=== PATIENT | male | born 1965 | race Caucasian/White ===

== ENCOUNTER 2016-12-10 16:04 | Outpatient (RCR) | payer MEDICARE ==
[2016-12-05 10:30] VITALS: BMI 29.8
[~2016-12-10 16:04] MED LIST: ALBU2.5V36 INH; ASPI-1471 PO; CITA-139 PO; DEXL60CA6 PO; IPRA3AMP21 IH; LOSA-57 PO; PRAV20TA66 PO; PRED20TA6 PO; SULF-198 PO; VAL80 PO; VARE1TAB4 PO
--- NOTE | 2016-12-12 14:15 | Transitional Care Management ---
Assessment Visit Type: Telephone Visit Spoke with: Stevenson Respiratory: WNL Except Respiratory Comment: 12/12 got concentrator and port O2 that goes up to 8 L for home use. states he got nebulizer meds but no nebulizer for them. I contacted [facility] and got signed order then faxdd to [facility]. Pt states he has to carry large port unit and I requested they bring him a carrier. They do not have a BIPAP until . States he plans on pulm rehab when next class begins in a month. Knows limits of O2 tanks is 1/2 hr for little one and 2hr for big one. Doesn't have carrier for tank and asked [facility] to provide one. Musculoskeletal, Exercise: WNL Except Musculoskeletal, Excercise Com: 12/12 getting around house; steady. doesnt need a cane for stability. Enc little more each day Integumentary: WNL Except Integumentary Comment: 12/12 sees PT for wounds on at 2:15. Feeling of Well Being: WNL Feeling of Well Being Comment: 12/12 safe being home and using O2 Scheduled Follow-Up with Mary Kayi: No (12/12 enc to call Patsy for 1-2 wk f/u) TCM Discharge Criteria Medication Knowledge: 12/12 has neb meds but no neb. Enc him to ask [facility] to show him how to use nebulizer when they deliver it. Nebs are only new meds. His parents bought the chantix for him. Disease Management/Concern/Wha: COPD Red/Yellow Flags: COPD Transitional Care Comment: 12/07 Concerned about finances. Had business office come and visit with him. States "I'm getting stronger-my O2 is now down to 6 1/2 liters. hopes to go home Saturday.12/08 called pharmacy to see how to obtain coupons to reduce the cost of Chantex. Check sites on internet. was able to find 1 coupon for Chantix This costs approx $387 per starter pkg. I also gave him information on Living will-Advance directive. He thinks he will be going home tomorrow and is receptive in learning. 12/10 preparing for DC. Awaiting O2 tank. Will take mask from here and [facility] will bring new mask and remaining equip to his home in a couple days. Mr Garcia is seriously contaplating changes in his life.He is going to do what he he can to get the Chantex (quit smoking med) to help him and the will try to increase activity. Will be going to outpatient rehab for his legs to be wrapped and then when he can get signed up with Pul Rehab he will do that. 12/11 Left message for pt 12/12 pt returned call. Feels better. able to sleep just a few hours at a time and on his right side awaiting BIPAP thurs. Called pt back to let him know that signed order was fax to [facility] and that he should recieive it this pm and if not to call them. Able to drive to pharmacy and bank. feels better. states was 88% on monitor when he was SOB. Quit smoking REKHA ANNA Dec 12, 2016 14:15
[2016-12-17] MEDS ORDERED: PRED-1 PO (06:46)
[2016-12-17] MEDS ORDERED: CEF300 PO (07:29)
--- NOTE | 2016-12-19 14:56 | Transitional Care Management ---
Assessment Visit Type: Telephone Visit (12/19 Azam) Cardiac: WNL Cardiac Comment: 12/19 Denies any CP or dizyness. Saw Dr Delgado and BP was stable still holding Losartin for this time-until next appt. Respiratory: WNL Except Respiratory Comment: 12/12 got concentrator and port O2 that goes up to 8 L for home use. states he got nebulizer meds but no nebulizer for them. I contacted [facility] and got signed order then faxdd to [facility]. Pt states he has to carry large port unit and I requested they bring him a carrier. They do not have a BIPAP until . States he plans on pulm rehab when next class begins in a month. Knows limits of O2 tanks is 1/2 hr for little one and 2hr for big one. Doesn't have carrier for tank and [facility]. 12/19 'I'm doing OK. I went to Dr flores, Nathan and Karan today. Got a little tired but I went through 2 tanks.' I used the Bipap last PM and think I slept better with it. Slept most of the night with it on" This afternoon I'm going to rest with it on." GI: Nutrition: WNL Except GI Comment: 12/19 Eating fair-only eat 2 meals a day and try to lose wt.. We usually eat a late breakfast and then dinner around 1600. Wt Gain/Loss: WNL Weight Comment: 12/19weighted on my scale and wt 12 less than Patsy. But I will cont to go by mine to determinee if I gain wt. Constipation?: No Musculoskeletal, Exercise: WNL Except Musculoskeletal, Excercise Com: 12/12 getting around house; steady. doesnt need a cane for stability. Enc little more each day Mobility Comment: 12/19 sI got around quite well today. Integumentary: WNL Except Integumentary Comment: 12/12 sees PT for wounds on at 2:15. 12/19 will go to PT tomorrow and have my legs checkec. Feeling of Well Being: WNL Feeling of Well Being Comment: 12/12 safe being home and using O2 12/19 doing OK" wish I could do more" My parens come by and my is alot of support." Scheduled Follow-Up with Mary Kayi: Yes [facility]: 12/19 [facility]. Have an appointment w Voc rehab tomorrow at 1415 and then to PT at [facility] for wound care. I will do the Pul Rehab in one month. Following Discharge Instructio: Yes TCM Discharge Criteria Medication Knowledge: 12/12 has neb meds but no neb. Enc him to ask [facility] to show him how to use nebulizer when they deliver it. Nebs are only new meds. His parents bought the chantix for him. Disease Management/Concern/Wha: COPD Red/Yellow Flags: COPD Transitional Care Comment: 12/07 Concerned about finances. Had business office come and visit with him. States "I'm getting stronger-my O2 is now down to 6 1/2 liters. hopes to go home Saturday.12/08 called pharmacy to see how to obtain coupons to reduce the cost of Chantex. Check sites on internet. was able to find 1 coupon for Chantix This costs approx $387 per starter pkg. I also gave him information on Living will-Advance directive. He thinks he will be going home tomorrow and is receptive in learning. 12/10 preparing for DC. Awaiting O2 tank. Will take mask from here and [facility] will bring new mask and remaining equip to his home in a couple days. Mr Garcia is seriously contaplating changes in his life.He is going to do what he he can to get the Chantex (quit smoking med) to help him and the will try to increase activity. Will be going to outpatient rehab for his legs to be wrapped and then when he can get signed up with Pul Rehab he will do that. 12/11 Left message for pt 12/12 pt returned call. Feels better. able to sleep just a few hours at a time and on his right side awaiting BIPAP thurs. Called pt back to let him know that signed order was fax to [facility] for neb and that he should recieive it this pm and if not to call them. Able to drive to pharmacy and bank. feels better. states was 88% on monitor when he was SOB. Quit smoking 12/19 Seems a little down but states he's doing OK. Hopes something for him to do will come out of visit to [facility]hab. Has not smoked. Using Chantex 1x daily but has found he doesn't even have the desire at this time. Copies to: BRIAN DELGADO JOAN Dec 19, 2016 14:56
[2016-12-23] MEDS ORDERED: FLUT1DIS28 INH (13:38)
[2016-12-23] MEDS ORDERED: PRED-1 PO (13:38)
--- NOTE | 2016-12-24 13:29 | Transitional Care Management ---
Assessment Visit Type: Telephone Visit Spoke with: Azam Cardiac: WNL Cardiac Comment: 12/19 Denies any CP or dizyness. Saw Dr Delgado and BP was stable still holding Losartin for this time-until next appt. 12/24 Losartin/hudroclorithiazide still on hold, though his legs are starting to swell. Respiratory: WNL Except Respiratory Comment: 12/12 got concentrator and port O2 that goes up to 8 L for home use. states he got nebulizer meds but no nebulizer for them. I contacted [facility] and got signed order then faxdd to [facility]. Pt states he has to carry large port unit and I requested they bring him a carrier. They do not have a BIPAP until . States he plans on pulm rehab when next class begins in a month. Knows limits of O2 tanks is 1/2 hr for little one and 2hr for big one. Doesn't have carrier for tank and asked [facility] to provide one. 12/19 'I'm doing OK. I went to [facility] and [facility] today. Got a little tired but I went through 2 tanks.' I used the Bipap last PM and think I slept better with it. Slept most of the night with it on" This afternoon I'm going to rest with it on." 12/24 He is 91-92% on 6L, tollerating Bipap, but only sleeps a few hours at a time, new neb mask he feels is more effective. GI: Nutrition: WNL Except GI Comment: 12/19 Eating fair-only eat 2 meals a day and try to lose wt.. We usually eat a late breakfast and then dinner around 1600. Wt Gain/Loss: WNL Weight Comment: 12/19weighted on my scale and wt 12 less than Patsy. But I will cont to go by mine to determinee if I gain wt. Constipation?: No : WNL Musculoskeletal, Exercise: WNL Except Musculoskeletal, Excercise Com: 12/12 getting around house; steady. doesnt need a cane for stability. Enc little more each day 12/24 Tollerating activity well today. Mobility/Falls: WNL Mobility Comment: 12/19 sI got around quite well today. Integumentary: WNL Except Integumentary Comment: 12/12 sees PT for wounds on at 2:15. 12/19 will go to PT tomorrow and have my legs checkec. 12/24 PT appt today for wounds. Feeling of Well Being: WNL Feeling of Well Being Comment: 12/12 safe being home and using O2 12/19 doing OK" wish I could do more" My parens come by and my is alot of support." 12/24 When I discharged yesterday, they put me back on a higher dose of prednisone, and I feel a lot better. Socialization: WNL Pain/Management: WNL Scheduled Follow-Up with Provi: Yes [facility]: 12/19 [place]. Have an appointment w [facility] tomorrow at 1415 and then to PT at [facility] for wound care. I will do the Pul Rehab in one month. 12/24 continuing Voc rehab, PT wound care. Questions for Future PCP Visit: 12/24 Losartan/hydrclorithiazide, swelling of legs. Following Discharge Instructio: Yes TCM Discharge Criteria Medication Knowledge: 12/12 has neb meds but no neb. Enc him to ask [facility] to show him how to use nebulizer when they deliver it. Nebs are only new meds. His parents bought the chantix for him. 12/24 He has not needed to take the chantix, but may once he is out of the house more. Disease Management/Concern/Wha: COPD Red/Yellow Flags: COPD Transitional Care Comment: 12/07 Concerned about finances. Had business office come and visit with him. States "I'm getting stronger-my O2 is now down to 6 1/2 liters. hopes to go home Saturday.12/08 called pharmacy to see how to obtain coupons to reduce the cost of Chantex. Check sites on internet. was able to find 1 coupon for Chantix This costs approx $387 per starter pkg. I also gave him information on Living will-Advance directive. He thinks he will be going home tomorrow and is receptive in learning. 12/10 preparing for DC. Awaiting O2 tank. Will take mask from here and [facility] will bring new mask and remaining equip to his home in a couple days. Mr Garcia is seriously contaplating changes in his life.He is going to do what he he can to get the Chantex (quit smoking med) to help him and the will try to increase activity. Will be going to outpatient rehab for his legs to be wrapped and then when he can get signed up with Pul Rehab he will do that. 12/11 Left message for pt 12/12 pt returned call. Feels better. able to sleep just a few hours at a time and on his right side awaiting BIPAP thurs. Called pt back to let him know that signed order was fax to [facility] for neb and that he should recieive it this pm and if not to call them. Able to drive to pharmacy and [facility]. feels better. states was 88% on monitor when he was SOB. Quit smoking 12/19 Seems a little down but states he's doing OK. Hopes something for him to do will come out of visit to [facility]. Has not smoked. Using Chantex 1x daily but has found he doesn't even have the desire at this time. 12/24 Pt was discharged from the hospital yesterday. He was put back on higher dose prednisone, and was given a mask for his neb treatments, and feels better today. He is not smoking, and has not taken chantix, but keeps it incase, once he is getting out more and arround smoke, he feels the need. Sats 91-92% on 6L. Seeing PT for wound care today. Copies to: BRIAN DELGADO MICHAEL K Dec 24, 2016 13:29
--- NOTE | 2016-12-31 13:23 | Transitional Care Management ---
Assessment Visit Type: Telephone Visit Spoke with: Azam Cardiac: WNL Cardiac Comment: 12/19 Denies any CP or dizyness. Saw Dr Delgado and BP was stable still holding Losartin for this time-until next appt. 12/24 Losartin/hudroclorithiazide still on hold, though his legs are starting to swell. Respiratory: WNL Except Respiratory Comment: 12/12 got concentrator and port O2 that goes up to 8 L for home use. states he got nebulizer meds but no nebulizer for them. I contacted [facility] and got signed order then faxdd to [facility]. Pt states he has to carry large port unit and I requested they bring him a carrier. They do not have a BIPAP until . States he plans on pulm rehab when next class begins in a month. Knows limits of O2 tanks is 1/2 hr for little one and 2hr for big one. Doesn't have carrier for tank and asked [facility] to provide one. 12/19 'I'm doing OK. I went to [facility] and [facility] today. Got a little tired but I went through 2 tanks.' I used the Bipap last PM and think I slept better with it. Slept most of the night with it on" This afternoon I'm going to rest with it on." 12/24 He is 91-92% on 6L, tollerating Bipap, but only sleeps a few hours at a time, new neb mask he feels is more effective. 12/31 Tollerating Bipap well, 6L O2 during the day. GI: Nutrition: WNL Except GI Comment: 12/19 Eating fair-only eat 2 meals a day and try to lose wt.. We usually eat a late breakfast and then dinner around 1600. Wt Gain/Loss: WNL Weight Comment: 12/19weighted on my scale and wt 12 less than Patsy. But I will cont to go by mine to determinee if I gain wt. Constipation?: No : WNL Musculoskeletal, Exercise: WNL Except Musculoskeletal, Excercise Com: 12/12 getting around house; steady. doesnt need a cane for stability. Enc little more each day 12/24 Tollerating activity well today. Mobility/Falls: WNL Mobility Comment: 12/19 sI got around quite well today. Integumentary: WNL Except Integumentary Comment: 12/12 sees PT for wounds on at 2:15. 12/19 will go to PT tomorrow and have my legs checkec. 12/24 PT appt today for wounds. Feeling of Well Being: WNL Feeling of Well Being Comment: 12/12 safe being home and using O2 12/19 doing OK" wish I could do more" My parens come by and my is alot of support." 12/24 When I discharged yesterday, they put me back on a higher dose of prednisone, and I feel a lot better. 12/31 I am feeling pretty good. Socialization: WNL Pain/Management: WNL Scheduled Follow-Up with Mary Kayi: Yes (12/31Jan 14 Rug Frame Mounter Appt.) Community Resources/HHC: 12/19 [place]. Have an appointment w [facility] tomorrow at 1415 and then to PT at [facility] for wound care. I will do the Pul Rehab in one month. 12/24 continuing [facility] re[facility], PT wound care. Questions for Future PCP Visit: 12/24 Losartan/hydrclorithiazide, swelling of legs. Following Discharge Instructio: Yes TCM Discharge Criteria Medication Knowledge: 12/12 has neb meds but no neb. Enc him to ask [facility] to show him how to use nebulizer when they deliver it. Nebs are only new meds. His parents bought the chantix for him. 12/24 He has not needed to take the chantix, but may once he is out of the house more. Disease Management/Concern/Wha: COPD Red/Yellow Flags: COPD Transitional Care Comment: 12/07 Concerned about finances. Had business office come and visit with him. States "I'm getting stronger-my O2 is now down to 6 1/2 liters. hopes to go home Saturday.12/08 called pharmacy to see how to obtain coupons to reduce the cost of Chantex. Check sites on internet. was able to find 1 coupon for Chantix This costs approx $387 per starter pkg. I also gave him information on Living will-Advance directive. He thinks he will be going home tomorrow and is receptive in learning. 12/10 preparing for DC. Awaiting O2 tank. Will take mask from here and [facility] will bring new mask and remaining equip to his home in a couple days. Mr Garcia is seriously contaplating changes in his life.He is going to do what he he can to get the Chantex (quit smoking med) to help him and the will try to increase activity. Will be going to outpatient rehab for his legs to be wrapped and then when he can get signed up with Pul Rehab he will do that. 12/11 Left message for pt 12/12 pt returned call. Feels better. able to sleep just a few hours at a time and on his right side awaiting BIPAP thurs. Called pt back to let him know that signed order was fax to [facility] for neb and that he should recieive it this pm and if not to call them. Able to drive to pharmacy and [employer]. feels better. states was 88% on monitor when he was SOB. Quit smoking 12/19 Seems a little down but states he's doing OK. Hopes something for him to do will come out of visit to [facility]. Has not smoked. Using Chantex 1x daily but has found he doesn't even have the desire at this time. 12/24 Pt was discharged from the hospital yesterday. He was put back on higher dose prednisone, and was given a mask for his neb treatments, and feels better today. He is not smoking, and has not taken chantix, but keeps it incase, once he is getting out more and arround smoke, he feels the need. Sats 91-92% on 6L. Seeing PT for wound care today. 12/31 He is feeling good, will stay on 6L until his Pulmonology appt on jan 14, tollerating Bipap well. Copies to: BRIAN DELGADO MICHAEL K Dec 31, 2016 13:23
--- NOTE | 2017-01-08 11:20 | Transitional Care Management ---
Assessment Visit Type: Telephone Visit (01/08 [place]) Cardiac: WNL Cardiac Comment: 12/19 Denies any CP or dizyness. Saw Dr Delgado and BP was stable still holding Losartin for this time-until next appt. 12/24 Losartin/hudroclorithiazide still on hold, though his legs are starting to swell. 01/08 Denies CP and swelling in legs much decreased. Respiratory: WNL Except Respiratory Comment: 12/12 got concentrator and port O2 that goes up to 8 L for home use. states he got nebulizer meds but no nebulizer for them. I contacted [facility] and got signed order then faxdd to [facility]. Pt states he has to carry large port unit and I requested they bring him a carrier. They do not have a BIPAP until . States he plans on pulm rehab when next class begins in a month. Knows limits of O2 tanks is 1/2 hr for little one and 2hr for big one. Doesn't have carrier for tank and asked [facility] to provide one. 12/19 'I'm doing OK. I went to Dr flores, [facility] and [facility] today. Got a little tired but I went through 2 tanks.' I used the Bipap last PM and think I slept better with it. Slept most of the night with it on" This afternoon I'm going to rest with it on." 12/24 He is 91-92% on 6L, tollerating Bipap, but only sleeps a few hours at a time, new neb mask he feels is more effective. 12/31 Tollerating Bipap well, 6L O2 during the day. RT Rehab won't start again until March but he is registared. GI: Nutrition: WNL Except GI Comment: 12/19 Eating fair-only eat 2 meals a day and try to lose wt.. We usually eat a late breakfast and then dinner around 1600. Wt Gain/Loss: WNL Weight Comment: 12/19weighted on my scale and wt 12 less than Patsy. But I will cont to go by mine to determinee if I gain wt. 01/08 still wt about 223# trying to lose but not happening yet Constipation?: No : WNL Musculoskeletal, Exercise: WNL Except Musculoskeletal, Excercise Com: 12/12 getting around house; steady. doesnt need a cane for stability. Enc little more each day 12/24 Tollerating activity well today. 01/08 walking around. when I go to [place] I walking around lookng for the one item I wnet after and can get a pretty good walk in. Today I'm going to [facility] and they are going to give me a 6 mo membership to the [facility]. Reminded him to start slowly Mobility/Falls: WNL Mobility Comment: 12/19 sI got around quite well today. Integumentary: WNL Except Integumentary Comment: 12/12 sees PT for wounds on at 2:15. 12/19 will go to PT tomorrow and have my legs checkec. 12/24 PT appt today for wounds. 01/08 PT told him last that his leg wounds are almost healed and the swelling pretty much gone Feeling of Well Being: WNL Feeling of Well Being Comment: 12/12 safe being home and using O2 12/19 doing OK" wish I could do more" My parens come by and my is alot of support." 12/24 When I discharged yesterday, they put me back on a higher dose of prednisone, and I feel a lot better. 12/31 I am feeling pretty good. I am feeling better. Thanks for the support! Socialization: WNL Pain/Management: WNL Scheduled Follow-Up with Jose Alejandro: Yes (12/31Jan 14 County Commissioner Appt.) Community Resources/HHC: 12/19 [facility]. Have an appointment w [facility] tomorrow at 1415 and then to PT at [facility] for wound care. I will do the Pul Rehab in one month. 12/24 continuing [facility] re[facility], PT wound care. Questions for Future PCP Visit: 12/24 Losartan/hydrclorithiazide, swelling of legs. Following Discharge Instructio: Yes TCM Discharge Criteria Medication Knowledge: 12/12 has neb meds but no neb. Enc him to ask [facility] to show him how to use nebulizer when they deliver it. Nebs are only new meds. His parents bought the chantix for him. 12/24 He has not needed to take the chantix, but may once he is out of the house more. Disease Management/Concern/Wha: COPD Red/Yellow Flags: COPD Transitional Care Comment: 12/07 Concerned about finances. Had business office come and visit with him. States "I'm getting stronger-my O2 is now down to 6 1/2 liters. hopes to go home Saturday.12/08 called pharmacy to see how to obtain coupons to reduce the cost of Chantex. Check sites on internet. was able to find 1 coupon for Chantix This costs approx $387 per starter pkg. I also gave him information on Living will-Advance directive. He thinks he will be going home tomorrow and is receptive in learning. 12/10 preparing for DC. Awaiting O2 tank. Will take mask from here and [facility] will bring new mask and remaining equip to his home in a couple days. Mr Garcia is seriously contaplating changes in his life.He is going to do what he he can to get the Chantex (quit smoking med) to help him and the will try to increase activity. Will be going to outpatient rehab for his legs to be wrapped and then when he can get signed up with Pul Rehab he will do that. 12/11 Left message for pt 12/12 pt returned call. Feels better. able to sleep just a few hours at a time and on his right side awaiting BIPAP thurs. Called pt back to let him know that signed order was fax to [facility] for neb and that he should recieive it this pm and if not to call them. Able to drive to pharmacy and bank. feels better. states was 88% on monitor when he was SOB. Quit smoking 12/19 Seems a little down but states he's doing OK. Hopes something for him to do will come out of visit to [facility]. Has not smoked. Using Chantex 1x daily but has found he doesn't even have the desire at this time. 12/24 Pt was discharged from the hospital yesterday. He was put back on higher dose prednisone, and was given a mask for his neb treatments, and feels better today. He is not smoking, and has not taken chantix, but keeps it incase, once he is getting out more and arround smoke, he feels the need. Sats 91-92% on 6L. Seeing PT for wound care today. 12/31 He is feeling good, will stay on 6L until his Pulmonology appt on jan 14, tollerating Bipap well. 01/08 Feeling better. RT turned his O2 down to 5L while he was up thre on . He is to see the Hemotolgist on Jan 11 for the second time and to see Oulmonologist next saturday. Looking forward to going to [facility]. Copies to: BRIAN DELGADO JOAN Jan 08, 2017 11:20
[2017-01-10] MEDS ORDERED: FURO40TA35 PO (20:53)
--- NOTE | 2017-01-17 10:51 | Transitional Care Management ---
Assessment Visit Type: Telephone Visit Spoke with: Azam Cardiac: WNL Cardiac Comment: 12/19 Denies any CP or dizyness. Saw Dr Garner and BP was stable still holding Losartin for this time-until next appt. 12/24 Losartin/hudroclorithiazide still on hold, though his legs are starting to swell. 01/08 Denies CP and swelling in legs much decreased. 01/17 Taking lasix 20 mg daily. Respiratory: WNL Except Respiratory Comment: 12/12 got concentrator and port O2 that goes up to 8 L for home use. states he got nebulizer meds but no nebulizer for them. I contacted [facility] and got signed order then faxdd to [facility]. Pt states he has to carry large port unit and I requested they bring him a carrier. They do not have a BIPAP until . States he plans on pulm rehab when next class begins in a month. Knows limits of O2 tanks is 1/2 hr for little one and 2hr for big one. Doesn't have carrier for tank and asked [facility] to provide one. 12/19 'I'm doing OK. I went to [facility] today. Got a little tired but I went through 2 tanks.' I used the Bipap last PM and think I slept better with it. Slept most of the night with it on" This afternoon I'm going to rest with it on." 12/24 He is 91-92% on 6L, tollerating Bipap, but only sleeps a few hours at a time, new neb mask he feels is more effective. 12/31 Tollerating Bipap well, 6L O2 during the day. [facility] Rehab won't start again until March but he is registared. 01/17 He is on 3L when resting and 5L with activity. He saw the blow torch operator on the , and says he has swelling in his neck that they are concerned about. He is not taking his breathing treatments as often as ordered because he can't afford them. "If I take them every eight hours, I have enough to get through a week." GI: Nutrition: WNL Except GI Comment: 12/19 Eating fair-only eat 2 meals a day and try to lose wt.. We usually eat a late breakfast and then dinner around 1600. Wt Gain/Loss: WNL Weight Comment: 12/19weighted on my scale and wt 12 less than Patsy. But I will cont to go by mine to determinee if I gain wt. 01/08 still wt about 223# trying to lose but not happening yet 01/17 He states that his weights are stable. Constipation?: No : WNL Musculoskeletal, Exercise: WNL Except Musculoskeletal, Excercise Com: 12/12 getting around house; steady. doesnt need a cane for stability. Enc little more each day 12/24 Tollerating activity well today. 01/08 walking around. when I go to [facility] I walking around lookng for the one item I wnet after and can get a pretty good walk in. Today I'm going to [facility] and they are going to give me a 6 mo membership to the [facility]. Reminded him to start slowly Mobility/Falls: WNL Mobility Comment: 12/19 sI got around quite well today. Integumentary: WNL Except Integumentary Comment: 12/12 sees PT for wounds on at 2:15. 12/19 will go to PT tomorrow and have my legs checkec. 12/24 PT appt today for wounds. 01/08 PT told him last that his leg wounds are almost healed and the swelling pretty much gone 01/17 He sees wound care later today. Feeling of Well Being: WNL Feeling of Well Being Comment: 12/12 safe being home and using O2 12/19 doing OK" wish I could do more" My parens come by and my is alot of support." 12/24 When I discharged yesterday, they put me back on a higher dose of prednisone, and I feel a lot better. 12/31 I am feeling pretty good. I am feeling better. Thanks for the support! 01/17 I was in the ER last week, I have good days and bad. Socialization: WNL Pain/Management: WNL Scheduled Follow-Up with Jose Alejandro: Yes (12/31Jan 14 Orthodontist Vice President Appt. 01/17 next Pulm appt on 01/29) Community Resources/HHC: 12/19 [facility]. Have an appointment w [facility] tomorrow at 1415 and then to PT at [facility] for wound care. I will do the Pul Rehab in one month. 12/24 continuing [facility]oc rehab, PT wound care. Questions for Future PCP Visit: 12/24 Losartan/hydrclorithiazide, swelling of legs. Following Discharge Instructio: Yes TCM Discharge Criteria Medication Knowledge: 12/12 has neb meds but no neb. Enc him to ask [facility] to show him how to use nebulizer when they deliver it. Nebs are only new meds. His parents bought the chantix for him. 12/24 He has not needed to take the chantix, but may once he is out of the house more. Disease Management/Concern/Wha: COPD Red/Yellow Flags: COPD Transitional Care Comment: 12/07 Concerned about finances. Had business office come and visit with him. States "I'm getting stronger-my O2 is now down to 6 1/2 liters. hopes to go home Saturday.12/08 called pharmacy to see how to obtain coupons to reduce the cost of Chantex. Check sites on internet. was able to find 1 coupon for Chantix This costs approx $387 per starter pkg. I also gave him information on Living will-Advance directive. He thinks he will be going home tomorrow and is receptive in learning. 12/10 preparing for DC. Awaiting O2 tank. Will take mask from here and [facility] will bring new mask and remaining equip to his home in a couple days. Mr Garcia is seriously contaplating changes in his life.He is going to do what he he can to get the Chantex (quit smoking med) to help him and the will try to increase activity. Will be going to outpatient rehab for his legs to be wrapped and then when he can get signed up with Pul Rehab he will do that. 12/11 Left message for pt 12/12 pt returned call. Feels better. able to sleep just a few hours at a time and on his right side awaiting BIPAP thurs. Called pt back to let him know that signed order was fax to [facility] for neb and that he should recieive it this pm and if not to call them. Able to drive to pharmacy and bank. feels better. states was 88% on monitor when he was SOB. Quit smoking 12/19 Seems a little down but states he's doing OK. Hopes something for him to do will come out of visit to [facility]. Has not smoked. Using Chantex 1x daily but has found he doesn't even have the desire at this time. 12/24 Pt was discharged from the hospital yesterday. He was put back on higher dose prednisone, and was given a mask for his neb treatments, and feels better today. He is not smoking, and has not taken chantix, but keeps it incase, once he is getting out more and arround smoke, he feels the need. Sats 91-92% on 6L. Seeing PT for wound care today. 12/31 He is feeling good, will stay on 6L until his Pulmonology appt on jan 14, tollerating Bipap well. 01/08 Feeling better. RT turned his O2 down to 5L while he was up thre on . He is to see the Hemotolgist on Jan 11 for the second time and to see Oulmonologist next saturday. Looking forward to going to [facility]. 01/17 He feels good today, but says it is hit or miss as to how he feels. He can't afford his breathing treatments. ROLAND FARLEY Jan 17, 2017 10:51
[2017-01-25] MEDS ORDERED: FURO20TA19 PO (15:23)
[2017-01-25] MEDS ORDERED: POTA10CA40 PO (15:49)
[2017-01-25] MEDS ORDERED: FURO40TA35 PO (17:51)
[2017-01-25] MEDS ORDERED: POTA20TA85 PO (17:51)
--- NOTE | 2017-02-01 11:34 | Transitional Care Management ---
Assessment Cardiac: WNL Cardiac Comment: 12/19 Denies any CP or dizyness. Saw Dr Garner and BP was stable still holding Losartin for this time-until next appt. 12/24 Losartin/hudroclorithiazide still on hold, though his legs are starting to swell. 01/08 Denies CP and swelling in legs much decreased. 01/17 Taking lasix 20 mg daily. Respiratory: WNL Except Respiratory Comment: 12/12 got concentrator and port O2 that goes up to 8 L for home use. states he got nebulizer meds but no nebulizer for them. I contacted natasha LAST and got signed order then faxdd to [facility]. Pt states he has to carry large port unit and I requested they bring him a carrier. They do not have a BIPAP until . States he plans on pulm rehab when next class begins in a month. Knows limits of O2 tanks is 1/2 hr for little one and 2hr for big one. Doesn't have carrier for tank and asked [facility] [place] to provide one. 12/19 'I'm doing OK. I went to Dr flores, Nathan and Karan today. Got a little tired but I went through 2 tanks.' I used the Bipap last PM and think I slept better with it. Slept most of the night with it on" This afternoon I'm going to rest with it on." 12/24 He is 91-92% on 6L, tollerating Bipap, but only sleeps a few hours at a time, new neb mask he feels is more effective. 12/31 Tollerating Bipap well, 6L O2 during the day. [facility] won't start again until March but he is registared. 01/17 He is on 3L when resting and 5L with activity. He saw the military education coordinator on the , and says he has swelling in his neck that they are concerned about. He is not taking his breathing treatments as often as ordered because he can't afford them. "If I take them every eight hours, I have enough to get through a week." GI: Nutrition: WNL Except GI Comment: 12/19 Eating fair-only eat 2 meals a day and try to lose wt.. We usually eat a late breakfast and then dinner around 1600. Wt Gain/Loss: WNL Weight Comment: 12/19weighted on my scale and wt 12 less than Patsy. But I will cont to go by mine to determinee if I gain wt. 01/08 still wt about 223# trying to lose but not happening yet 01/17 He states that his weights are stable. Constipation?: No : WNL Musculoskeletal, Exercise: WNL Except Musculoskeletal, Excercise Com: 12/12 getting around house; steady. doesnt need a cane for stability. Enc little more each day 12/24 Tollerating activity well today. 01/08 walking around. when I go to [employer] I walking around lookng for the one item I wnet after and can get a pretty good walk in. Today [facility]'m going [facility] and [facility] are going to [facility]. Reminded him to start slowly Mobility/Falls: WNL Mobility Comment: 12/19 sI got around quite well today. Integumentary: WNL Except Integumentary Comment: 12/12 sees PT for wounds on at 2:15. 12/19 will go to PT tomorrow and have my legs checkec. 12/24 PT appt today for wounds. 01/08 PT told him last that his leg wounds are almost healed and the swelling pretty much gone 01/17 He sees wound care later today. Feeling of Well Being: WNL Feeling of Well Being Comment: 12/12 safe being home and using O2 12/19 doing OK" wish I could do more" My parens come by and my is alot of support." 12/24 When I discharged yesterday, they put me back on a higher dose of prednisone, and I feel a lot better. 12/31 I am feeling pretty good. I am feeling better. Thanks for the support! 01/17 I was in the ER last week, I have good days and bad. Socialization: WNL Pain/Management: WNL Scheduled Follow-Up with Jose Alejandro: Yes (12/31 Nov [employer] Appt. 01/17 next Pulm appt on 01/29) Community Resources/HHC: 12/19 [facility]. Have an appointment w [facility] tomorrow at 1415 and then to [facility] for [facility] care. I will do the Pul Rehab in one month. 12/24 continuing [facility], PT wound care. Questions for Future PCP Visit: 12/24 Losartan/hydrclorithiazide, swelling of legs. Following Discharge Instructio: Yes TCM Discharge Criteria Medication Knowledge: 12/12 has neb meds but no neb. Enc him to ask [facility] to show him how to use nebulizer when they deliver it. Nebs are only new meds. His parents bought the chantix for him. 12/24 He has not needed to take the chantix, but may once he is out of the house more. Disease Management/Concern/Wha: COPD Red/Yellow Flags: COPD Transitional Care Comment: 12/07 Concerned about finances. Had business office come and visit with him. States "I'm getting stronger-my O2 is now down to 6 1/2 liters. hopes to go home Saturday.12/08 called pharmacy to see how to obtain coupons to reduce the cost of Chantex. Check sites on internet. was able to find 1 coupon for Chantix This costs approx $387 per starter pkg. I also gave him information on Living will-Advance directive. He thinks he will be going home tomorrow and is receptive in learning. 12/10 preparing for DC. Awaiting O2 tank. Will take mask from here and [facility] will bring new mask and remaining equip to his home in a couple days. Mr Garcia is seriously contaplating changes in his life.He is going to do what he he can to get the Chantex (quit smoking med) to help him and the will try to increase activity. Will be going to outpatient rehab for his legs to be wrapped and then when he can get signed up with Pul Rehab he will do that. 12/11 Left message for pt 12/12 pt returned call. Feels better. able to sleep just a few hours at a time and on his right side awaiting BIPAP thurs. Called pt back to let him know that signed order was fax to [facility] for neb and that he should recieive it this pm and if not to call them. Able to drive to pharmacy and bank. feels better. states was 88% on monitor when he was SOB. Quit smoking 12/19 Seems a little down but states he's doing OK. Hopes something for him to do will come out of visit to [facility]. Has not smoked. Using Chantex 1x daily but has found he doesn't even have the desire at this time. 12/24 Pt was discharged from the hospital yesterday. He was put back on higher dose prednisone, and was given a mask for his neb treatments, and feels better today. He is not smoking, and has not taken chantix, but keeps it incase, once he is getting out more and arround smoke, he feels the need. Sats 91-92% on 6L. Seeing PT for wound care today. 12/31 He is feeling good, will stay on 6L until his Pulmonology appt on jan 14, tollerating Bipap well. 01/08 Feeling better. RT turned his O2 down to 5L while he was up thre on . He is to see the Hemotolgist on Jan 11 for the second time and to see Oulmonologist next saturday. Looking forward to going to [facility]. 01/17 He feels good today, but says it is hit or miss as to how he feels. He can't afford his breathing treatments. 01/25 Left message. 01/30 Left message. 02/01 left message REKHA ANNA Feb 01, 2017 11:34
--- NOTE | 2017-02-05 11:11 | Transitional Care Management ---
Assessment Visit Type: Telephone Visit Spoke with: Azam Cardiac: WNL Cardiac Comment: 12/19 Denies any CP or dizyness. Saw Dr Garner and BP was stable still holding Losartin for this time-until next appt. 12/24 Losartin/hudroclorithiazide still on hold, though his legs are starting to swell. 01/08 Denies CP and swelling in legs much decreased. 01/17 Taking lasix 20 mg daily. Taking lasix 40mg BID. No edema. Respiratory: WNL Except Respiratory Comment: 12/12 got concentrator and port O2 that goes up to 8 L for home use. states he got nebulizer meds but no nebulizer for them. I contacted nat[facility] LAST and got signed order then faxdd to [facility]. Pt states he has to carry large port unit and I requested they bring him a carrier. They do not have a BIPAP until . States he plans on pulm rehab when next class begins in a month. Knows limits of O2 tanks is 1/2 hr for little one and 2hr for big one. Doesn't have carrier for tank and asked [facility] [place] to provide one. 12/19 'I'm doing OK. I went to [facility] and [facility] today. Got a little tired but I went through 2 tanks.' I used the Bipap last PM and think I slept better with it. Slept most of the night with it on" This afternoon I'm going to rest with it on." 12/24 He is 91-92% on 6L, tollerating Bipap, but only sleeps a few hours at a time, new neb mask he feels is more effective. 12/31 Tollerating Bipap well, 6L O2 during the day. [facility] won't start again until March but he is registared. 01/17 He is on 3L when resting and 5L with activity. He saw the oracle iam consultant on the , and says he has swelling in his neck that they are concerned about. He is not taking his breathing treatments as often as ordered because he can't afford them. "If I take them every eight hours, I have enough to get through a week." 02/05 Reduced SOB since lasix increased, still on 3-5L O2. Starts pulm rehab in March. GI: Nutrition: WNL Except GI Comment: 12/19 Eating fair-only eat 2 meals a day and try to lose wt.. We usually eat a late breakfast and then dinner around 1600. Wt Gain/Loss: WNL Weight Comment: 12/19weighted on my scale and wt 12 less than Patsy. But I will cont to go by mine to determinee if I gain wt. 01/08 still wt about 223# trying to lose but not happening yet 01/17 He states that his weights are stable. 02/05 He had an initial weight loss after the lasix increased, but says that his weight has been stable for the last week, but can't remember how much he weighs. I stressed the importance of daily weights, and andrews for notifying his Dr for weight gain. He was in the ER on the with a 10-15 pound weight gain. Constipation?: No : WNL Musculoskeletal, Exercise: WNL Except Musculoskeletal, Excercise Com: 12/12 getting around house; steady. doesnt need a cane for stability. Enc little more each day 12/24 Tollerating activity well today. 01/08 walking around. when I go to [facility] I walking around lookng for the one item I wnet after and can get a pretty good walk in. Today I'm going [facility] and they are going to give me a [facility]. Reminded him to start slowly 02/05 Rec center membership has not been approved yet. He gets out some without difficulty. Mobility/Falls: WNL Mobility Comment: 12/19 sI got around quite well today. Integumentary: WNL Except Integumentary Comment: 12/12 sees PT for wounds on at 2:15. 12/19 will go to PT tomorrow and have my legs checkec. 12/24 PT appt today for wounds. 01/08 PT told him last that his leg wounds are almost healed and the swelling pretty much gone 01/17 He sees wound care later today. Feeling of Well Being: WNL Feeling of Well Being Comment: 12/12 safe being home and using O2 12/19 doing OK" wish I could do more" My parens come by and my is alot of support." 12/24 When I discharged yesterday, they put me back on a higher dose of prednisone, and I feel a lot better. 12/31 I am feeling pretty good. I am feeling better. Thanks for the support! 01/17 I was in the ER last week, I have good days and bad. 02/05 Was in ER again on 01/25. Socialization: WNL Pain/Management: WNL Scheduled Follow-Up with [facility]: Yes (02/[address] Lisa, vascular, on Saturday, and the oracle iam consultant on Saturday.) Community Resources/HHC: 12/19 [facility]. Have an appointment w [facility] tomorrow at 1415 and then to PT at [facility] for wound care. I will do the Pul Rehab in one month. 12/24 continuing [facility], PT wound care. 02/05Starts Pulmonary rehab in March. Has contacted [facility] and [facility], but did not qualify for assistance. Questions for Future PCP Visit: 12/24 Losartan/hydrclorithiazide, swelling of legs. Following Discharge Instructio: Yes TCM Discharge Criteria Medication Knowledge: 12/12 has neb meds but no neb. Enc him to ask [facility] to show him how to use nebulizer when they deliver it. Nebs are only new meds. His parents bought the chantix for him. 12/24 He has not needed to take the chantix, but may once he is out of the house more. 02/05 Taking 2 Nebs per day, lasix 40 mg BID, done with prednisone. Disease Management/Concern/Wha: COPD Red/Yellow Flags: COPD Transitional Care Comment: 12/07 Concerned about finances. Had business office come and visit with him. States "I'm getting stronger-my O2 is now down to 6 1/2 liters. hopes to go home Saturday.12/08 called pharmacy to see how to obtain coupons to reduce the cost of Chantex. Check sites on internet. was able to find 1 coupon for Chantix This costs approx $387 per starter pkg. I also gave him information on Living will-Advance directive. He thinks he will be going home tomorrow and is receptive in learning. 12/10 preparing for DC. Awaiting O2 tank. Will take mask from here and [facility] will bring new mask and remaining equip to his home in a couple days. Mr Garcia is seriously contaplating changes in his life.He is going to do what he he can to get the Chantex (quit smoking med) to help him and the will try to increase activity. Will be going to outpatient rehab for his legs to be wrapped and then when he can get signed up with Pul Rehab he will do that. 12/11 Left message for pt 12/12 pt returned call. Feels better. able to sleep just a few hours at a time and on his right side awaiting BIPAP . Called pt back to let him know that signed order was fax to [facility] [place] for neb and that he should recieive it this pm and if not to call them. Able to drive to pharmacy and [employer]. feels better. states was 88% on monitor when he was SOB. Quit smoking 12/19 Seems a little down but states he's doing OK. Hopes something for him to do will come out of visit to [facility]. Has not smoked. Using Chantex 1x daily but has found he doesn't even have the desire at this time. 12/24 Pt was discharged from the hospital yesterday. He was put back on higher dose prednisone, and was given a mask for his neb treatments, and feels better today. He is not smoking, and has not taken chantix, but keeps it incase, once he is getting out more and arround smoke, he feels the need. Sats 91-92% on 6L. Seeing PT for wound care today. 12/31 He is feeling good, will stay on 6L until his Pulmonology appt on jan 14, tollerating Bipap well. 01/08 Feeling better. RT turned his O2 down to 5L while he was up thre on . He is to see the Hemotolgist on Jan 11 for the second time and to see Oulmonologist next saturday. [facility]. 01/17 He feels good today, but says it is hit or miss as to how he feels. He can't afford his breathing treatments. 01/25 Left message. 01/30 Left message. 02/01 left message 02/05 ER visit on 01/25 with 10-15 pound weight gain, lasix 40mg BID started. Claims his weights are stable. He sees Vascular and Technical Planner in the next week. Starts pulm rehab in March. Denied for assistance through [facility] and [facility]. Copies to: BRIAN GARNER MICHAEL K Feb 05, 2017 11:11
[2017-02-10] MEDS ORDERED: TIO18R INH (13:08)
--- NOTE | 2017-02-12 14:33 | Transitional Care Management ---
Assessment Cardiac: WNL Cardiac Comment: 12/19 Denies any CP or dizyness. Saw Dr Garner and BP was stable still holding Losartin for this time-until next appt. 12/24 Losartin/hudroclorithiazide still on hold, though his legs are starting to swell. 01/08 Denies CP and swelling in legs much decreased. 01/17 Taking lasix 20 mg daily. Taking lasix 40mg BID. No edema. Respiratory: WNL Except Respiratory Comment: 12/12 got concentrator and port O2 that goes up to 8 L for home use. states he got nebulizer meds but no nebulizer for them. I contacted natasha LAST and got signed order then faxdd to [facility]. Pt states he has to carry large port unit and I requested they bring him a carrier. They do not have a BIPAP until . States he plans on pulm rehab when next class begins in a month. Knows limits of O2 tanks is 1/2 hr for little one and 2hr for big one. Doesn't have carrier for tank and asked [facility] to provide one. 12/19 'I'm doing OK. I went to [facility] and [facility] today. Got a little tired but I went through 2 tanks.' I used the Bipap last PM and think I slept better with it. Slept most of the night with it on" This afternoon I'm going to rest with it on." 12/24 He is 91-92% on 6L, tollerating Bipap, but only sleeps a few hours at a time, new neb mask he feels is more effective. 12/31 Tollerating Bipap well, 6L O2 during the day. [facility] won't start again until March but he is registared. 01/17 He is on 3L when resting and 5L with activity. He saw the experimental mechanic electrical on the , and says he has swelling in his neck that they are concerned about. He is not taking his breathing treatments as often as ordered because he can't afford them. "If I take them every eight hours, I have enough to get through a week." 02/05 Reduced SOB since lasix increased, still on 3-5L O2. Starts pulm rehab in March. GI: Nutrition: WNL Except GI Comment: 12/19 Eating fair-only eat 2 meals a day and try to lose wt.. We usually eat a late breakfast and then dinner around 1600. Wt Gain/Loss: WNL Weight Comment: 12/19weighted on my scale and wt 12 less than Patsy. But I will cont to go by mine to determinee if I gain wt. 01/08 still wt about 223# trying to lose but not happening yet 01/17 He states that his weights are stable. 02/05 He had an initial weight loss after the lasix increased, but says that his weight has been stable for the last week, but can't remember how much he weighs. I stressed the importance of daily weights, and andrews for notifying his Dr for weight gain. He was in the ER on the with a 10-15 pound weight gain. Constipation?: No : WNL Musculoskeletal, Exercise: WNL Except Musculoskeletal, Excercise Com: 12/12 getting around house; steady. doesnt need a cane for stability. Enc little more each day 12/24 Tollerating activity well today. 01/08 walking around. when I go to [facility] I walking around lookng for the one item I wnet after and can get a pretty good walk in. Today I'm going [facility] and they are going to give me [facility]. Reminded him to start slowly 02/05 Rec center membership has not been approved yet. He gets out some without difficulty. Mobility/Falls: WNL Mobility Comment: 12/19 sI got around quite well today. Integumentary: WNL Except Integumentary Comment: 12/12 sees PT for wounds on at 2:15. 12/19 will go to PT tomorrow and have my legs checkec. 12/24 PT appt today for wounds. 01/08 PT told him last that his leg wounds are almost healed and the swelling pretty much gone 01/17 He sees wound care later today. Feeling of Well Being: WNL Feeling of Well Being Comment: 12/12 safe being home and using O2 12/19 doing OK" wish I could do more" My parens come by and my is alot of support." 12/24 When I discharged yesterday, they put me back on a higher dose of prednisone, and I feel a lot better. 12/31 I am feeling pretty good. I am feeling better. Thanks for the support! 01/17 I was in the ER last week, I have good days and bad. 02/05 Was in ER again on 01/25. Socialization: WNL Pain/Management: WNL Scheduled Follow-Up with [facility]: Yes (02/[address] Lisa, vascular, on Saturday, and the experimental mechanic electrical on Saturday.) Community Resources/HHC: 12/19 [facility]. Have an appointment w [facility] tomorrow at 1415 and then to PT at [facility] for wound care. I will do the Pul Rehab in one month. 12/24 continuing Voc rehab, PT wound care. 02/05Starts Pulmonary rehab in March. Has contacted [facility] and [facility], but did not qualify for assistance. Questions for Future PCP Visit: 12/24 Losartan/hydrclorithiazide, swelling of legs. Following Discharge Instructio: Yes TCM Discharge Criteria Medication Knowledge: 12/12 has neb meds but no neb. Enc him to ask [facility] to show him how to use nebulizer when they deliver it. Nebs are only new meds. His parents bought the chantix for him. 12/24 He has not needed to take the chantix, but may once he is out of the house more. 02/05 Taking 2 Nebs per day, lasix 40 mg BID, done with prednisone. Disease Management/Concern/Wha: COPD Red/Yellow Flags: COPD Transitional Care Comment: 12/07 Concerned about finances. Had business office come and visit with him. States "I'm getting stronger-my O2 is now down to 6 1/2 liters. hopes to go home Saturday.12/08 called pharmacy to see how to obtain coupons to reduce the cost of Chantex. Check sites on internet. was able to find 1 coupon for Chantix This costs approx $387 per starter pkg. I also gave him information on Living will-Advance directive. He thinks he will be going home tomorrow and is receptive in learning. 12/10 preparing for DC. Awaiting O2 tank. Will take mask from here and [facility] will bring new mask and remaining equip to his home in a couple days. Mr Garcia is seriously contaplating changes in his life.He is going to do what he he can to get the Chantex (quit smoking med) to help him and the will try to increase activity. Will be going to outpatient rehab for his legs to be wrapped and then when he can get signed up with Pul Rehab he will do that. 12/11 Left message for pt 12/12 pt returned call. Feels better. able to sleep just a few hours at a time and on his right side awaiting BIPAP . Called pt back to let him know that signed order was fax to [facility] for neb and that he should recieive it this pm and if not to call them. Able to drive to pharmacy and bank. feels better. states was 88% on monitor when he was SOB. Quit smoking 12/19 Seems a little down but states he's doing OK. Hopes something for him to do will come out of visit to [facility]. Has not smoked. Using Chantex 1x daily but has found he doesn't even have the desire at this time. 12/24 Pt was discharged from the hospital yesterday. He was put back on higher dose prednisone, and was given a mask for his neb treatments, and feels better today. He is not smoking, and has not taken chantix, but keeps it incase, once he is getting out more and arround smoke, he feels the need. Sats 91-92% on 6L. Seeing PT for wound care today. 12/31 He is feeling good, will stay on 6L until his Pulmonology appt on jan 14, tollerating Bipap well. 01/08 Feeling better. RT turned his O2 down to 5L while he was up thre on . He is to see the Hemotolgist on Jan 11 for the second time and to see Oulmonologist next saturday. [facility]. 01/17 He feels good today, but says it is hit or miss as to how he feels. He can't afford his breathing treatments. 01/25 Left message. 01/30 Left message. 02/01 left message 02/05 ER visit on 01/25 with 10-15 pound weight gain, lasix 40mg BID started. Claims his weights are stable. He sees Vascular and Scout Leaser in the next week. Starts pulm rehab in March. Denied for assistance through [facility] and [facility]. 01/13 Unable to contact ANASTASIA GILMORE Feb 12, 2017 14:33
--- NOTE | 2017-02-13 10:54 | Transitional Care Management ---
Assessment Cardiac: WNL Cardiac Comment: 12/19 Denies any CP or dizyness. Saw Dr Garner and BP was stable still holding Losartin for this time-until next appt. 12/24 Losartin/hudroclorithiazide still on hold, though his legs are starting to swell. 01/08 Denies CP and swelling in legs much decreased. 01/17 Taking lasix 20 mg daily. Taking lasix 40mg BID. No edema. Respiratory: WNL Except Respiratory Comment: 12/12 got concentrator and port O2 that goes up to 8 L for home use. states he got nebulizer meds but no nebulizer for them. I contacted natasha LAST and got signed order then faxdd to [facility]. Pt states he has to carry large port unit and I requested they bring him a carrier. They do not have a BIPAP until . States he plans on pulm rehab when next class begins in a month. Knows limits of O2 tanks is 1/2 hr for little one and 2hr for big one. Doesn't have carrier for tank and asked [facility] to provide one. 12/19 'I'm doing OK. I went to [facility] today. Got a little tired but I went through 2 tanks.' I used the Bipap last PM and think I slept better with it. Slept most of the night with it on" This afternoon I'm going to rest with it on." 12/24 He is 91-92% on 6L, tollerating Bipap, but only sleeps a few hours at a time, new neb mask he feels is more effective. 12/31 Tollerating Bipap well, 6L O2 during the day. [facility] won't start again until March but he is registared. 01/17 He is on 3L when resting and 5L with activity. He saw the crusher supervisor on the , and says he has swelling in his neck that they are concerned about. He is not taking his breathing treatments as often as ordered because he can't afford them. "If I take them every eight hours, I have enough to get through a week." 02/05 Reduced SOB since lasix increased, still on 3-5L O2. Starts pulm rehab in March. GI: Nutrition: WNL Except GI Comment: 12/19 Eating fair-only eat 2 meals a day and try to lose wt.. We usually eat a late breakfast and then dinner around 1600. Wt Gain/Loss: WNL Weight Comment: 12/19weighted on my scale and wt 12 less than aPtsy. But I will cont to go by mine to determinee if I gain wt. 01/08 still wt about 223# trying to lose but not happening yet 01/17 He states that his weights are stable. 02/05 He had an initial weight loss after the lasix increased, but says that his weight has been stable for the last week, but can't remember how much he weighs. I stressed the importance of daily weights, and andrews for notifying his Dr for weight gain. He was in the ER on the with a 10-15 pound weight gain. Constipation?: No : WNL Musculoskeletal, Exercise: WNL Except Musculoskeletal, Excercise Com: 12/12 getting around house; steady. doesnt need a cane for stability. Enc little more each day 12/24 Tollerating activity well today. 01/08 walking around. when I go to [facility] I walking around lookng for the one item I wnet after and can get a pretty good walk in. Today I'm going [facility] and they are going to give me [facility]. Reminded him to start slowly 02/05 Rec center membership has not been approved yet. He gets out some without difficulty. Mobility/Falls: WNL Mobility Comment: 12/19 sI got around quite well today. Integumentary: WNL Except Integumentary Comment: 12/12 sees PT for wounds on at 2:15. 12/19 will go to PT tomorrow and have my legs checkec. 12/24 PT appt today for wounds. 01/08 PT told him last that his leg wounds are almost healed and the swelling pretty much gone 01/17 He sees wound care later today. Feeling of Well Being: WNL Feeling of Well Being Comment: 12/12 safe being home and using O2 12/19 doing OK" wish I could do more" My parens come by and my is alot of support." 12/24 When I discharged yesterday, they put me back on a higher dose of prednisone, and I feel a lot better. 12/31 I am feeling pretty good. I am feeling better. Thanks for the support! 01/17 I was in the ER last week, I have good days and bad. 02/05 Was in ER again on 01/25. Socialization: WNL Pain/Management: WNL Scheduled Follow-Up with Provi: Yes (02/[address] Lisa, vascular, on Saturday, and the crusher supervisor on Saturday.) Community Resources/HHC: 12/19 [facility]. Have an appointment w [facility] tomorrow at 1415 and then to PT at [facility] for wound care. I will do the Pul Rehab in one month. 12/24 continuing [facility], PT wound care. 02/05Starts Pulmonary rehab in March. Has contacted [facility] and [facility], but did not qualify for assistance. Questions for Future PCP Visit: 12/24 Losartan/hydrclorithiazide, swelling of legs. Following Discharge Instructio: Yes TCM Discharge Criteria Medication Knowledge: 12/12 has neb meds but no neb. Enc him to ask [facility] to show him how to use nebulizer when they deliver it. Nebs are only new meds. His parents bought the chantix for him. 12/24 He has not needed to take the chantix, but may once he is out of the house more. 02/05 Taking 2 Nebs per day, lasix 40 mg BID, done with prednisone. Disease Management/Concern/Wha: COPD Red/Yellow Flags: COPD Transitional Care Comment: 12/07 Concerned about finances. Had business office come and visit with him. States "I'm getting stronger-my O2 is now down to 6 1/2 liters. hopes to go home Saturday.12/08 called pharmacy to see how to obtain coupons to reduce the cost of Chantex. Check sites on internet. was able to find 1 coupon for Chantix This costs approx $387 per starter pkg. I also gave him information on Living will-Advance directive. He thinks he will be going home tomorrow and is receptive in learning. 12/10 preparing for DC. Awaiting O2 tank. Will take mask from here and [facility] will bring new mask and remaining equip to his home in a couple days. Mr Garcia is seriously contaplating changes in his life.He is going to do what he he can to get the Chantex (quit smoking med) to help him and the will try to increase activity. Will be going to outpatient rehab for his legs to be wrapped and then when he can get signed up with Pul Rehab he will do that. 12/11 Left message for pt 12/12 pt returned call. Feels better. able to sleep just a few hours at a time and on his right side awaiting BIPAP . Called pt back to let him know that signed order was fax to [facility] for neb and that he should recieive it this pm and if not to call them. Able to drive to pharmacy and bank. feels better. states was 88% on monitor when he was SOB. Quit smoking 12/19 Seems a little down but states he's doing OK. Hopes something for him to do will come out of visit to [facility]. Has not smoked. Using Chantex 1x daily but has found he doesn't even have the desire at this time. 12/24 Pt was discharged from the hospital yesterday. He was put back on higher dose prednisone, and was given a mask for his neb treatments, and feels better today. He is not smoking, and has not taken chantix, but keeps it incase, once he is getting out more and arround smoke, he feels the need. Sats 91-92% on 6L. Seeing PT for wound care today. 12/31 He is feeling good, will stay on 6L until his Pulmonology appt on jan 14, tollerating Bipap well. 01/08 Feeling better. RT turned his O2 down to 5L while he was up thre on . He is to see the Hemotolgist on Jan 11 for the second time and to see Oulmonologist next saturday. Looking [facility] to [facility]. 01/17 He feels good today, but says it is hit or miss as to how he feels. He can't afford his breathing treatments. 01/25 Left message. 01/30 Left message. 02/01 left message 02/05 ER visit on 01/25 with 10-15 pound weight gain, lasix 40mg BID started. Claims his weights are stable. He sees Vascular and Production Support Supervisor in the next week. Starts pulm rehab in March. Denied for assistance through [facility] and [facility]. 01/13 Unable to contact 02/13 called; left message REKHA ANNA Feb 13, 2017 10:54
--- NOTE | 2017-02-14 10:41 | Transitional Care Management ---
Assessment Cardiac: WNL Cardiac Comment: 12/19 Denies any CP or dizyness. Saw Dr Garner and BP was stable still holding Losartin for this time-until next appt. 12/24 Losartin/hudroclorithiazide still on hold, though his legs are starting to swell. 01/08 Denies CP and swelling in legs much decreased. 01/17 Taking lasix 20 mg daily. Taking lasix 40mg BID. No edema. Respiratory: WNL Except Respiratory Comment: 12/12 got concentrator and port O2 that goes up to 8 L for home use. states he got nebulizer meds but no nebulizer for them. I contacted natasha LAST and got signed order then faxdd to [facility]. Pt states he has to carry large port unit and I requested they bring him a carrier. They do not have a BIPAP until . States he plans on pulm rehab when next class begins in a month. Knows limits of O2 tanks is 1/2 hr for little one and 2hr for big one. Doesn't have carrier for tank and asked [facility] to provide one. 12/19 'I'm doing OK. I went to [facility] today. Got a little tired but I went through 2 tanks.' I used the Bipap last PM and think I slept better with it. Slept most of the night with it on" This afternoon I'm going to rest with it on." 12/24 He is 91-92% on 6L, tollerating Bipap, but only sleeps a few hours at a time, new neb mask he feels is more effective. 12/31 Tollerating Bipap well, 6L O2 during the day. [facility] won't start again until March but he is registared. 01/17 He is on 3L when resting and 5L with activity. He saw the construction project engineer on the , and says he has swelling in his neck that they are concerned about. He is not taking his breathing treatments as often as ordered because he can't afford them. "If I take them every eight hours, I have enough to get through a week." 02/05 Reduced SOB since lasix increased, still on 3-5L O2. Starts pulm rehab in March. GI: Nutrition: WNL Except GI Comment: 12/19 Eating fair-only eat 2 meals a day and try to lose wt.. We usually eat a late breakfast and then dinner around 1600. Wt Gain/Loss: WNL Weight Comment: 12/19weighted on my scale and wt 12 less than Patsy. But I will cont to go by mine to determinee if I gain wt. 01/08 still wt about 223# trying to lose but not happening yet 01/17 He states that his weights are stable. 02/05 He had an initial weight loss after the lasix increased, but says that his weight has been stable for the last week, but can't remember how much he weighs. I stressed the importance of daily weights, and andrews for notifying his Dr for weight gain. He was in the ER on the with a 10-15 pound weight gain. Constipation?: No : WNL Musculoskeletal, Exercise: WNL Except Musculoskeletal, Excercise Com: 12/12 getting around house; steady. doesnt need a cane for stability. Enc little more each day 12/24 Tollerating activity well today. 01/08 walking around. when I go to [facility] I walking around lookng for the one item I wnet after and can get a pretty good walk in. Today I'm going to [facility] and they are going to give me a [facility]. Reminded him to start slowly 02/05 Rec center membership has not been approved yet. He gets out some without difficulty. Mobility/Falls: WNL Mobility Comment: 12/19 sI got around quite well today. Integumentary: WNL Except Integumentary Comment: 12/12 sees PT for wounds on at 2:15. 12/19 will go to PT tomorrow and have my legs checkec. 12/24 PT appt today for wounds. 01/08 PT told him last that his leg wounds are almost healed and the swelling pretty much gone 01/17 He sees wound care later today. Feeling of Well Being: WNL Feeling of Well Being Comment: 12/12 safe being home and using O2 12/19 doing OK" wish I could do more" My parens come by and my is alot of support." 12/24 When I discharged yesterday, they put me back on a higher dose of prednisone, and I feel a lot better. 12/31 I am feeling pretty good. I am feeling better. Thanks for the support! 01/17 I was in the ER last week, I have good days and bad. 02/05 Was in ER again on 01/25. Socialization: WNL Pain/Management: WNL Scheduled Follow-Up with Provi: Yes (02/[address] Lisa, vascular, on Saturday, and the construction project engineer on Saturday.) Community Resources/HHC: 12/19 [facility]. Have an appointment w [facility] tomorrow at 1415 and then to PT at [facility] for wound care. I will do the Pul Rehab in one month. 12/24 continuing Voc rehab, PT wound care. 02/05Starts Pulmonary rehab in March. Has contacted [facility] and [facility], but did not qualify for assistance. Questions for Future PCP Visit: 12/24 Losartan/hydrclorithiazide, swelling of legs. Following Discharge Instructio: Yes TCM Discharge Criteria Medication Knowledge: 12/12 has neb meds but no neb. Enc him to ask [facility] to show him how to use nebulizer when they deliver it. Nebs are only new meds. His parents bought the chantix for him. 12/24 He has not needed to take the chantix, but may once he is out of the house more. 02/05 Taking 2 Nebs per day, lasix 40 mg BID, done with prednisone. Disease Management/Concern/Wha: COPD Red/Yellow Flags: COPD Transitional Care Comment: 12/07 Concerned about finances. Had business office come and visit with him. States "I'm getting stronger-my O2 is now down to 6 1/2 liters. hopes to go home Saturday.12/08 called pharmacy to see how to obtain coupons to reduce the cost of Chantex. Check sites on internet. was able to find 1 coupon for Chantix This costs approx $387 per starter pkg. I also gave him information on Living will-Advance directive. He thinks he will be going home tomorrow and is receptive in learning. 12/10 preparing for DC. Awaiting O2 tank. Will take mask from here and [facility] will bring new mask and remaining equip to his home in a couple days. Mr Garcia is seriously contaplating changes in his life.He is going to do what he he can to get the Chantex (quit smoking med) to help him and the will try to increase activity. Will be going to outpatient rehab for his legs to be wrapped and then when he can get signed up with Pul Rehab he will do that. 12/11 Left message for pt 12/12 pt returned call. Feels better. able to sleep just a few hours at a time and on his right side awaiting BIPAP . Called pt back to let him know that signed order was fax to [facility] for neb and that he should recieive it this pm and if not to call them. Able to drive to pharmacy and bank. feels better. states was 88% on monitor when he was SOB. Quit smoking 12/19 Seems a little down but states he's doing OK. Hopes something for him to do will come out of visit to [facility]. Has not smoked. Using Chantex 1x daily but has found he doesn't even have the desire at this time. 12/24 Pt was discharged from the hospital yesterday. He was put back on higher dose prednisone, and was given a mask for his neb treatments, and feels better today. He is not smoking, and has not taken chantix, but keeps it incase, once he is getting out more and arround smoke, he feels the need. Sats 91-92% on 6L. Seeing PT for wound care today. 12/31 He is feeling good, will stay on 6L until his Pulmonology appt on jan 14, tollerating Bipap well. 01/08 Feeling better. RT turned his O2 down to 5L while he was up thre on . He is to see the Hemotolgist on Jan 11 for the second time and to see Oulmonologist next saturday. Looking forward to going to [facility]. 01/17 He feels good today, but says it is hit or miss as to how he feels. He can't afford his breathing treatments. 01/25 Left message. 01/30 Left message. 02/01 left message 02/05 ER visit on 01/25 with 10-15 pound weight gain, lasix 40mg BID started. Claims his weights are stable. He sees Vascular and Ripening Room Hand in the next week. Starts pulm rehab in March. Denied for assistance through [facility] and [employer]. 01/13 Unable to contact 02/13 called; left message 02/14 Left message for Patient. I contacted the ER, and he will be put on a treatment plan, so they will weigh him when he visits the ER instead of getting a stated weight. His weight reporting to [facility] and ER may be inconsistant. ROLAND FARLEY Feb 14, 2017 10:41
--- NOTE | 2017-02-18 13:00 | Transitional Care Management ---
Assessment Visit Type: Telephone Visit Spoke with: Azam Cardiac: WNL Cardiac Comment: 12/19 Denies any CP or dizyness. Saw Dr Garner and BP was stable still holding Losartin for this time-until next appt. 12/24 Losartin/hudroclorithiazide still on hold, though his legs are starting to swell. 01/08 Denies CP and swelling in legs much decreased. 01/17 Taking lasix 20 mg daily. 02/05Taking lasix 40mg BID. No edema. 02/18 Lasix 40mg BID, no leg edema, but has swelling in his chest and axilla. Ulrasound/venogram of chest done, awaiting results. Respiratory: WNL Except Respiratory Comment: 12/12 got concentrator and port O2 that goes up to 8 L for home use. states he got nebulizer meds but no nebulizer for them. I contacted [facility] and got signed order then faxdd to [facility]. Pt states he has to carry large port unit and I requested they bring him a carrier. They do not have a BIPAP until . States he plans on pulm rehab when next class begins in a month. Knows limits of O2 tanks is 1/2 hr for little one and 2hr for big one. Doesn't have carrier for tank and asked [facility] to provide one. 12/19 'I'm doing OK. I went to [facility] and [facility] today. Got a little tired but I went through 2 tanks.' I used the Bipap last PM and think I slept better with it. Slept most of the night with it on" This afternoon I'm going to rest with it on." 12/24 He is 91-92% on 6L, tollerating Bipap, but only sleeps a few hours at a time, new neb mask he feels is more effective. 12/31 Tollerating Bipap well, 6L O2 during the day. [facility] won't start again until March but he is registared. 01/17 He is on 3L when resting and 5L with activity. He saw the oracle database administrator on the , and says he has swelling in his neck that they are concerned about. He is not taking his breathing treatments as often as ordered because he can't afford them. "If I take them every eight hours, I have enough to get through a week." 02/05 Reduced SOB since lasix increased, still on 3-5L O2. Starts pulm rehab in March. 02/18 Maritime Engineer restarted prednisone, and he is scheduling an EKG, ECHO, Labs, nocturnal SPO2 monitoring, and will follow up with pulmonary when complete. GI: Nutrition: WNL GI Comment: 12/19 Eating fair-only eat 2 meals a day and try to lose wt.. We usually eat a late breakfast and then dinner around 1600. Wt Gain/Loss: WNL Weight Comment: 12/19weighted on my scale and wt 12 less than Patsy. But I will cont to go by mine to determinee if I gain wt. 01/08 still wt about 223# trying to lose but not happening yet 01/17 He states that his weights are stable. 02/05 He had an initial weight loss after the lasix increased, but says that his weight has been stable for the last week, but can't remember how much he weighs. I stressed the importance of daily weights, and andrews for notifying his Dr for weight gain. He was in the ER on the with a 10-15 pound weight gain. 02/18 States that weight are stable. Constipation?: No : WNL Musculoskeletal, Exercise: WNL Musculoskeletal, Excercise Com: 12/12 getting around house; steady. doesnt need a cane for stability. Enc little more each day 12/24 Tollerating activity well today. 01/08 walking around. when I go to [facility] I walking around lookng for the one item I wnet after and can get a pretty good walk in. Today I'm going to [facility] and they are going to [facility]. Reminded him to start slowly 02/05 Rec center membership has not been approved yet. He gets out some without difficulty. Mobility/Falls: WNL Mobility Comment: 12/19 I got around quite well today. Integumentary: WNL Except Integumentary Comment: 12/12 sees PT for wounds on at 2:15. 12/19 will go to PT tomorrow and have my legs checkec. 12/24 PT appt today for wounds. 01/08 PT told him last Thur that his leg wounds are almost healed and the swelling pretty much gone 01/17 He sees wound care later today. 02/18 wounds on legs are healed, but still sees PT for a wound on his ankle. Feeling of Well Being: WNL Feeling of Well Being Comment: 12/12 safe being home and using O2 12/19 doing OK" wish I could do more" My parens come by and my is alot of support." 12/24 When I discharged yesterday, they put me back on a higher dose of prednisone, and I feel a lot better. 12/31 I am feeling pretty good. I am feeling better. Thanks for the support! 01/17 I was in the ER last week, I have good days and bad. 02/05 Was in ER again on 01/25. 02/18 Pt feeling better now that he is on prednisone again, but is frustrated that the Dr mcdonald just leave him on it. I explained the health issues related to chronic steroid use. Socialization: WNL Pain/Management: WNL Scheduled Follow-Up with Mary Kayi: Yes (02/18 Zoltan on 03/06 and pulmonology the next week.) Community Resources/HHC: 12/19 [facility]. Have an appointment w [facility] tomorrow at 1415 and then to PT at [facility] for wound care. I will do the Pul Rehab in one month. 12/24 continuing [facility], PT wound care. 02/05Starts Pulmonary rehab in March. Has contacted [facility] and [facility], but did not qualify for assistance. 02/18 I gave him the [facility] assistance hotline to check for medication assistance. Questions for Future PCP Visit: 12/24 Losartan/hydrclorithiazide, swelling of legs. 02/18 lab and test results. Needed or Pending Tests: Yes Following Discharge Instructio: Yes TCM Discharge Criteria Medication Knowledge: 12/12 has neb meds but no neb. Enc him to ask [facility] to show him how to use nebulizer when they deliver it. Nebs are only new meds. His parents bought the chantix for him. 12/24 He has not needed to take the chantix, but may once he is out of the house more. 02/05 Taking 2 Nebs per day, lasix 40 mg BID, done with prednisone. 02/18 Taking prednisone 10mg/day, then 5mg/day until he sees the oracle database administrator. Disease Management/Concern/Wha: COPD Red/Yellow Flags: COPD Transitional Care Comment: 12/07 Concerned about finances. Had business office come and visit with him. States "I'm getting stronger-my O2 is now down to 6 1/2 liters. hopes to go home Saturday.12/08 called pharmacy to see how to obtain coupons to reduce the cost of Chantex. Check sites on internet. was able to find 1 coupon for Chantix This costs approx $387 per starter pkg. I also gave him information on Living will-Advance directive. He thinks he will be going home tomorrow and is receptive in learning. 12/10 preparing for DC. Awaiting O2 tank. Will take mask from here and [facility] will bring new mask and remaining equip to his home in a couple days. Mr Garcia is seriously contaplating changes in his life.He is going to do what he he can to get the Chantex (quit smoking med) to help him and the will try to increase activity. Will be going to outpatient rehab for his legs to be wrapped and then when he can get signed up with [facility] Rehab he will do that. 12/11 Left message for pt 12/12 pt returned call. Feels better. able to sleep just a few hours at a time and on his right side awaiting BIPAP thurs. Called pt back to let him know that signed order was fax to [facility] for neb and that he should recieive it this pm and if not to call them. Able to drive to pharmacy and [employer]. feels better. states was 88% on monitor when he was SOB. Quit smoking 12/19 Seems a little down but states he's doing OK. Hopes something for him to do will come out of visit to [facility]. Has not smoked. Using Chantex 1x daily but has found he doesn't even have the desire at this time. 12/24 Pt was discharged from the hospital yesterday. He was put back on higher dose prednisone, and was given a mask for his neb treatments, and feels better today. He is not smoking, and has not taken chantix, but keeps it incase, once he is getting out more and arround smoke, he feels the need. Sats 91-92% on 6L. Seeing PT for wound care today. 12/31 He is feeling good, will stay on 6L until his Pulmonology appt on jan 14, tollerating Bipap well. 01/08 Feeling better. RT turned his O2 down to 5L while he was up thre on . He is to see the Hemotolgist on Jan 11 for the second time and to see Oulmonologist next saturday. Looking forward to going to [facility]. 01/17 He feels good today, but says it is hit or miss as to how he feels. He can't afford his breathing treatments. 01/25 Left message. 01/30 Left message. 02/01 left message 02/05 ER visit on 01/25 with 10-15 pound weight gain, lasix 40mg BID started. Claims his weights are stable. He sees Vascular and Maritime Engineer in the next week. Starts pulm rehab in March. Denied for assistance through [facility] and [facility]. 01/13 Unable to contact 02/13 called; left message 02/14 Left message for Patient. I contacted the ER, and he will be put on a treatment plan, so they will weigh him when he visits the ER instead of getting a stated weight. His weight reporting to [facility] and ER may be inconsistant. 02/18 He is doing well again now that he is on prednisone. He is in the process of scheduling many tests and diagniostic procedures ordered by cardiology and pulmonology. Will see Zoltan on 03/06. Copies to: BROOKLYN CORMIER MD, MICHAEL K Feb 18, 2017 13:00
--- NOTE | 2017-02-25 14:02 | Transitional Care Management ---
Assessment Visit Type: Telephone Visit Spoke with: Azam Cardiac: WNL Cardiac Comment: 12/19 Denies any CP or dizyness. Saw Dr Garner and BP was stable still holding Losartin for this time-until next appt. 12/24 Losartin/hudroclorithiazide still on hold, though his legs are starting to swell. 01/08 Denies CP and swelling in legs much decreased. 01/17 Taking lasix 20 mg daily. 02/05Taking lasix 40mg BID. No edema. 02/18 Lasix 40mg BID, no leg edema, but has swelling in his chest and axilla. Ulrasound/venogram of chest done, awaiting results. 02/25 swelling resolved. Respiratory: WNL Except Respiratory Comment: 12/12 got concentrator and port O2 that goes up to 8 L for home use. states he got nebulizer meds but no nebulizer for them. I contacted [facility] and got signed order then faxdd to [facility]. Pt states he has to carry large port unit and I requested they bring him a carrier. They do not have a BIPAP until . States he plans on pulm rehab when next class begins in a month. Knows limits of O2 tanks is 1/2 hr for little one and 2hr for big one. Doesn't have carrier for tank and asked [facility] to provide one. 12/19 'I'm doing OK. I went to Dr flores, [facility] and [facility] today. Got a little tired but I went through 2 tanks.' I used the Bipap last PM and think I slept better with it. Slept most of the night with it on" This afternoon I'm going to rest with it on." 12/24 He is 91-92% on 6L, tollerating Bipap, but only sleeps a few hours at a time, new neb mask he feels is more effective. 12/31 Tollerating Bipap well, 6L O2 during the day. [facility] won't start again until March but he is registared. 01/17 He is on 3L when resting and 5L with activity. He saw the neon sign servicer on the , and says he has swelling in his neck that they are concerned about. He is not taking his breathing treatments as often as ordered because he can't afford them. "If I take them every eight hours, I have enough to get through a week." 02/05 Reduced SOB since lasix increased, still on 3-5L O2. Starts pulm rehab in March. 02/18 Solution Engineer restarted prednisone, and he is scheduling an EKG, ECHO, Labs, nocturnal SPO2 monitoring, and will follow up with pulmonary when complete. 02/25 Desats to 80-83% with activity, NOC SPO2 complete. He wants to change oxygen companies, "[facility] acts like they don't know what is going on, and can't answer my questions." GI: Nutrition: WNL GI Comment: 12/19 Eating fair-only eat 2 meals a day and try to lose wt.. We usually eat a late breakfast and then dinner around 1600. Wt Gain/Loss: WNL Weight Comment: 12/19weighted on my scale and wt 12 less than Patsy. But I will cont to go by mine to determinee if I gain wt. 01/08 still wt about 223# trying to lose but not happening yet 01/17 He states that his weights are stable. 02/05 He had an initial weight loss after the lasix increased, but says that his weight has been stable for the last week, but can't remember how much he weighs. I stressed the importance of daily weights, and andrews for notifying his Dr for weight gain. He was in the ER on the with a 10-15 pound weight gain. 02/18 States that weight are stable. 02/25 Stable. Constipation?: No : WNL Musculoskeletal, Exercise: WNL Musculoskeletal, Excercise Com: 12/12 getting around house; steady. doesnt need a cane for stability. Enc little more each day 12/24 Tollerating activity well today. 01/08 walking around. when I go to [employer] I walking around lookng for the one item I wnet after and can get a pretty good walk in. Today I'm going to [facility] and they are going to give me a 6 mo [facility] to [facility]. Reminded him to start slowly 02/05 Rec center membership has not been approved yet. He gets out some without difficulty. Mobility/Falls: WNL Mobility Comment: 12/19 I got around quite well today. Integumentary: WNL Except Integumentary Comment: 12/12 sees PT for wounds on at 2:15. 12/19 will go to PT tomorrow and have my legs checkec. 12/24 PT appt today for wounds. 01/08 PT told him last that his leg wounds are almost healed and the swelling pretty much gone 01/17 He sees wound care later today. 02/18 wounds on legs are healed, but still sees PT for a wound on his ankle. 02/25 Wound care continues. Feeling of Well Being: WNL Feeling of Well Being Comment: 12/12 safe being home and using O2 12/19 doing OK" wish I could do more" My parens come by and my is alot of support." 12/24 When I discharged yesterday, they put me back on a higher dose of prednisone, and I feel a lot better. 12/31 I am feeling pretty good. I am feeling better. Thanks for the support! 01/17 I was in the ER last week, I have good days and bad. 02/05 Was in ER again on 01/25. 02/18 Pt feeling better now that he is on prednisone again, but is frustrated that the Dr mcdonald just leave him on it. I explained the health issues related to chronic steroid use. 02/25 "I am getting all of these tests done, but we are not figuring anything out." Socialization: WNL Pain/Management: WNL Scheduled Follow-Up with Provi: Yes (02/18 Zoltan on 03/06 and pulmonology the next week.) Community Resources/HHC: 12/19 [facility]. Have an appointment w [facility] tomorrow at 1415 and then to PT at [facility] for wound care. I will do the Pul Rehab in one month. 12/24 continuing V[facility] rehab, PT wound care. 02/05Starts Pulmonary rehab in March. Has contacted [facility] and [facility], but did not qualify for assistance. 02/25 He is not taking spiriva, because he can't afford to get it refilled. 02/18 I gave him the [employer] assistance hotline to check for medication assistance. Questions for Future PCP Visit: 12/24 Losartan/hydrclorithiazide, swelling of legs. 02/18 lab and test results. Needed or Pending Tests: Yes Following Discharge Instructio: Yes TCM Discharge Criteria Medication Knowledge: 12/12 has neb meds but no neb. Enc him to ask [facility] to show him how to use nebulizer when they deliver it. Nebs are only new meds. His parents bought the chantix for him. 12/24 He has not needed to take the chantix, but may once he is out of the house more. 02/05 Taking 2 Nebs per day, lasix 40 mg BID, done with prednisone. 02/18 Taking prednisone 10mg/day, then 5mg/day until he sees the neon sign servicer. Disease Management/Concern/Wha: COPD Red/Yellow Flags: COPD Transitional Care Comment: 12/07 Concerned about finances. Had business office come and visit with him. States "I'm getting stronger-my O2 is now down to 6 1/2 liters. hopes to go home Saturday.12/08 called pharmacy to see how to obtain coupons to reduce the cost of Chantex. Check sites on internet. was able to find 1 coupon for Chantix This costs approx $387 per starter pkg. I also gave him information on Living will-Advance directive. He thinks he will be going home tomorrow and is receptive in learning. 12/10 preparing for DC. Awaiting O2 tank. Will take mask from here and [facility] will bring new mask and remaining equip to his home in a couple days. Mr Garcia is seriously contaplating changes in his life.He is going to do what he he can to get the Chantex (quit smoking med) to help him and the will try to increase activity. Will be going to outpatient rehab for his legs to be wrapped and then when he can get signed up with Pul Rehab he will do that. 12/11 Left message for pt 12/12 pt returned call. Feels better. able to sleep just a few hours at a time and on his right side awaiting BIPAP thurs. Called pt back to let him know that signed order was fax to [facility] for neb and that he should recieive it this pm and if not to call them. Able to drive to pharmacy and bank. feels better. states was 88% on monitor when he was SOB. Quit smoking 10/11 Seems a little down but states he's doing OK. Hopes something for him to do will come out of visit to [facility]. Has not smoked. Using Chantex 1x daily but has found he doesn't even have the desire at this time. 12/24 Pt was discharged from the hospital yesterday. He was put back on higher dose prednisone, and was given a mask for his neb treatments, and feels better today. He is not smoking, and has not taken chantix, but keeps it incase, once he is getting out more and arround smoke, he feels the need. Sats 91-92% on 6L. Seeing PT for wound care today. 12/31 He is feeling good, will stay on 6L until his Pulmonology appt on jan 14, tollerating Bipap well. 01/08 Feeling better. RT turned his O2 down to 5L while he was up thre on . He is to see the Hemotolgist on Jan 11 for the second time and to see Oulmonologist next saturday. Looking forward to going to [facility]. 01/17 He feels good today, but says it is hit or miss as to how he feels. He can't afford his breathing treatments. 01/25 Left message. 01/30 Left message. 02/01 left message 02/05 ER visit on 01/25 with 10-15 pound weight gain, lasix 40mg BID started. Claims his weights are stable. He sees Vascular and Solution Engineer in the next week. Starts pulm rehab in March. Denied for assistance through [facility] and [facility]. 01/13 Unable to contact 02/13 called; left message 02/14 Left message for Patient. I contacted the ER, and he will be put on a treatment plan, so they will weigh him when he visits the ER instead of getting a stated weight. His weight reporting to [facility] and ER may be inconsistant. 02/18 He is doing well again now that he is on prednisone. He is in the process of scheduling many tests and diagniostic procedures ordered by cardiology and pulmonology. Will see Zoltan on 03/06. 02/25 He dsats to 80-83% with activity, but recovers quickly. He has the last of his tests on 03/[address] Charlton on 03/06. He can't afford his Spiriva, or nebs, all assistance resources have been provided previously. He wants to change O2 companies, feels that [employer] is not very helpful. Copies to: BROOKLYN CHARLTON MD, MICHAEL K Feb 25, 2017 14:02
[2017-03-06] MEDS ORDERED: PRED-1 PO (13:29)
[2017-03-06] MEDS ORDERED: OXYC5TAB38 PO (14:14)
--- NOTE | 2017-03-07 14:25 | Transitional Care Management ---
Assessment Cardiac: WNL Cardiac Comment: 12/19 Denies any CP or dizyness. Saw Dr Garner and BP was stable still holding Losartin for this time-until next appt. 12/24 Losartin/hudroclorithiazide still on hold, though his legs are starting to swell. 01/08 Denies CP and swelling in legs much decreased. 01/17 Taking lasix 20 mg daily. 02/05Taking lasix 40mg BID. No edema. 02/18 Lasix 40mg BID, no leg edema, but has swelling in his chest and axilla. Ulrasound/venogram of chest done, awaiting results. 02/25 swelling resolved. Respiratory: WNL Except Respiratory Comment: 12/12 got concentrator and port O2 that goes up to 8 L for home use. states he got nebulizer meds but no nebulizer for them. I contacted [facility] and got signed order then faxdd to [facility]. Pt states he has to carry large port unit and I requested they bring him a carrier. They do not have a BIPAP until . States he plans on pulm rehab when next class begins in a month. Knows limits of O2 tanks is 1/2 hr for little one and 2hr for big one. Doesn't have carrier for tank and asked [facility] to provide one. 12/19 'I'm doing OK. I went to [facility] today. Got a little tired but I went through 2 tanks.' I used the Bipap last PM and think I slept better with it. Slept most of the night with it on" This afternoon I'm going to rest with it on." 12/24 He is 91-92% on 6L, tollerating Bipap, but only sleeps a few hours at a time, new neb mask he feels is more effective. 12/31 Tollerating Bipap well, 6L O2 during the day. [facility] Re[facility] won't start again until March but he is registared. 01/17 He is on 3L when resting and 5L with activity. He saw the wood boring machine operator on the , and says he has swelling in his neck that they are concerned about. He is not taking his breathing treatments as often as ordered because he can't afford them. "If I take them every eight hours, I have enough to get through a week." 02/05 Reduced SOB since lasix increased, still on 3-5L O2. Starts pulm rehab in March. 02/18 Flatwork Catcher restarted prednisone, and he is scheduling an EKG, ECHO, Labs, nocturnal SPO2 monitoring, and will follow up with pulmonary when complete. 02/25 Desats to 80-83% with activity, NOC SPO2 complete. He wants to change oxygen companies, "[facility] acts like they don't know what is going on, and can't answer my questions." GI: Nutrition: WNL GI Comment: 12/19 Eating fair-only eat 2 meals a day and try to lose wt.. We usually eat a late breakfast and then dinner around 1600. Wt Gain/Loss: WNL Weight Comment: 12/19weighted on my scale and wt 12 less than Patsy. But I will cont to go by mine to determinee if I gain wt. 01/08 still wt about 223# trying to lose but not happening yet 01/17 He states that his weights are stable. 02/05 He had an initial weight loss after the lasix increased, but says that his weight has been stable for the last week, but can't remember how much he weighs. I stressed the importance of daily weights, and andrews for notifying his Dr for weight gain. He was in the ER on the with a 10-15 pound weight gain. 02/18 States that weight are stable. 02/25 Stable. Constipation?: No : WNL Musculoskeletal, Exercise: WNL Musculoskeletal, Excercise Com: 12/12 getting around house; steady. doesnt need a cane for stability. Enc little more each day 12/24 Tollerating activity well today. 01/08 walking around. when I go to [facility] I walking around lookng for the one item I wnet after and can get a pretty good walk in. Today I'm going [facility] and [facility] are going to [facility]. Reminded him to start slowly 02/05 Rec center membership has not been approved yet. He gets out some without difficulty. Mobility/Falls: WNL Mobility Comment: 12/19 I got around quite well today. Integumentary: WNL Except Integumentary Comment: 12/12 sees PT for wounds on at 2:15. 12/19 will go to PT tomorrow and have my legs checkec. 12/24 PT appt today for wounds. 01/08 PT told him last that his leg wounds are almost healed and the swelling pretty much gone 01/17 He sees wound care later today. 02/18 wounds on legs are healed, but still sees PT for a wound on his ankle. 02/25 Wound care continues. Feeling of Well Being: WNL Feeling of Well Being Comment: 12/12 safe being home and using O2 12/19 doing OK" wish I could do more" My parens come by and my is alot of support." 12/24 When I discharged yesterday, they put me back on a higher dose of prednisone, and I feel a lot better. 12/31 I am feeling pretty good. I am feeling better. Thanks for the support! 01/17 I was in the ER last week, I have good days and bad. 02/05 Was in ER again on 01/25. 02/18 Pt feeling better now that he is on prednisone again, but is frustrated that the Dr mcdonald just leave him on it. I explained the health issues related to chronic steroid use. 02/25 "I am getting all of these tests done, but we are not figuring anything out." Socialization: WNL Pain/Management: WNL Scheduled Follow-Up with [facility]: Yes (02/18 Zoltan on 03/06 and pulmonology the next week.) Community Resources/HHC: 12/19 [facility]. Have an appointment w [facility] tomorrow at 1415 and then to PT at [facility] for wound care. I will do the Pul Rehab in one month. 12/24 continuing [facility], PT wound care. 02/05Starts Pulmonary rehab in March. Has contacted [facility] and [facility], but did not qualify for assistance. 02/25 He is not taking spiriva, because he can't afford to get it refilled. 02/18 I gave him the [facility] assistance hotline to check for medication assistance. Questions for Future PCP Visit: 12/24 Losartan/hydrclorithiazide, swelling of legs. 02/18 lab and test results. Needed or Pending Tests: Yes Following Discharge Instructio: Yes TCM Discharge Criteria Medication Knowledge: 12/12 has neb meds but no neb. Enc him to ask [facility] to show him how to use nebulizer when they deliver it. Nebs are only new meds. His parents bought the chantix for him. 12/24 He has not needed to take the chantix, but may once he is out of the house more. 02/05 Taking 2 Nebs per day, lasix 40 mg BID, done with prednisone. 02/18 Taking prednisone 10mg/day, then 5mg/day until he sees the wood boring machine operator. Disease Management/Concern/Wha: COPD Red/Yellow Flags: COPD Transitional Care Comment: 12/07 Concerned about finances. Had business office come and visit with him. States "I'm getting stronger-my O2 is now down to 6 1/2 liters. hopes to go home Saturday.12/08 called pharmacy to see how to obtain coupons to reduce the cost of Chantex. Check sites on internet. was able to find 1 coupon for Chantix This costs approx $387 per starter pkg. I also gave him information on Living will-Advance directive. He thinks he will be going home tomorrow and is receptive in learning. 12/10 preparing for DC. Awaiting O2 tank. Will take mask from here and [facility] will bring new mask and remaining equip to his home in a couple days. Mr Garcia is seriously contaplating changes in his life.He is going to do what he he can to get the Chantex (quit smoking med) to help him and the will try to increase activity. Will be going to outpatient rehab for his legs to be wrapped and then when he can get signed up with Pul Rehab he will do that. 12/11 Left message for pt 12/12 pt returned call. Feels better. able to sleep just a few hours at a time and on his right side awaiting BIPAP thurs. Called pt back to let him know that signed order was fax to [facility] for neb and that he should recieive it this pm and if not to call them. Able to drive to pharmacy and bank. feels better. states was 88% on monitor when he was SOB. Quit smoking 12/19 Seems a little down but states he's doing OK. Hopes something for him to do will come out of visit to [facility]. Has not smoked. Using Chantex 1x daily but has found he doesn't even have the desire at this time. 12/24 Pt was discharged from the hospital yesterday. He was put back on higher dose prednisone, and was given a mask for his neb treatments, and feels better today. He is not smoking, and has not taken chantix, but keeps it incase, once he is getting out more and arround smoke, he feels the need. Sats 91-92% on 6L. Seeing PT for wound care today. 12/31 He is feeling good, will stay on 6L until his Pulmonology appt on jan 14, tollerating Bipap well. 01/08 Feeling better. RT turned his O2 down to 5L while he was up thre on . He is to see the Hemotolgist on Jan 11 for the second time and to see Oulmonologist next saturday. Looking forward to going to [facility]. 01/17 He feels good today, but says it is hit or miss as to how he feels. He can't afford his breathing treatments. 01/25 Left message. 01/30 Left message. 02/01 left message 02/05 ER visit on 01/25 with 10-15 pound weight gain, lasix 40mg BID started. Claims his weights are stable. He sees Vascular and Flatwork Catcher in the next week. Starts pulm rehab in March. Denied for assistance through [facility] and [facility]. 01/13 Unable to contact 02/13 called; left message 02/14 Left message for Patient. I contacted the ER, and he will be put on a treatment plan, so they will weigh him when he visits the ER instead of getting a stated weight. His weight reporting to TCN and ER may be inconsistant. 02/18 He is doing well again now that he is on prednisone. He is in the process of scheduling many tests and diagniostic procedures ordered by cardiology and pulmonology. Will see Zoltan on 03/06. 02/25 He dsats to 80-83% with activity, but recovers quickly. He has the last of his tests on 03/[address] Charlton on 03/06. He can't afford his Spiriva, or nebs, all assistance resources have been provided previously. He wants to change [employer] companies, feels that [employer] is not very helpful. 03/07 left message REKHA ANNA Mar 07, 2017 14:24
--- NOTE | 2017-03-09 16:36 | Transitional Care Management ---
Assessment Cardiac: WNL Cardiac Comment: 12/19 Denies any CP or dizyness. Saw Dr Garner and BP was stable still holding Losartin for this time-until next appt. 12/24 Losartin/hudroclorithiazide still on hold, though his legs are starting to swell. 01/08 Denies CP and swelling in legs much decreased. 01/17 Taking lasix 20 mg daily. 02/05Taking lasix 40mg BID. No edema. 02/18 Lasix 40mg BID, no leg edema, but has swelling in his chest and axilla. Ulrasound/venogram of chest done, awaiting results. 02/25 swelling resolved. Respiratory: WNL Except Respiratory Comment: 12/12 got concentrator and port O2 that goes up to 8 L for home use. states he got nebulizer meds but no nebulizer for them. I contacted [facility] and got signed order then faxdd to [facility]. Pt states he has to carry large port unit and I requested they bring him a carrier. They do not have a BIPAP until . States he plans on pulm rehab when next class begins in a month. Knows limits of O2 tanks is 1/2 hr for little one and 2hr for big one. Doesn't have carrier for tank and asked [facility] to provide one. 12/19 'I'm doing OK. I went to [facility] today. Got a little tired but I went through 2 tanks.' I used the Bipap last PM and think I slept better with it. Slept most of the night with it on" This afternoon I'm going to rest with it on." 12/24 He is 91-92% on 6L, tollerating Bipap, but only sleeps a few hours at a time, new neb mask he feels is more effective. 12/31 Tollerating Bipap well, 6L O2 during the day. [facility] won't start again until March but he is registared. 01/17 He is on 3L when resting and 5L with activity. He saw the visitor services information assistant on the , and says he has swelling in his neck that they are concerned about. He is not taking his breathing treatments as often as ordered because he can't afford them. "If I take them every eight hours, I have enough to get through a week." 02/05 Reduced SOB since lasix increased, still on 3-5L O2. Starts pulm rehab in March. 02/18 Clinical Veterinarian restarted prednisone, and he is scheduling an EKG, ECHO, Labs, nocturnal SPO2 monitoring, and will follow up with pulmonary when complete. 02/25 Desats to 80-83% with activity, NOC SPO2 complete. He wants to change oxygen companies, "[facility] acts like they don't know what is going on, and can't answer my questions." GI: Nutrition: WNL GI Comment: 12/19 Eating fair-only eat 2 meals a day and try to lose wt.. We usually eat a late breakfast and then dinner around 1600. Wt Gain/Loss: WNL Weight Comment: 12/19weighted on my scale and wt 12 less than Patsy. But I will cont to go by mine to determinee if I gain wt. 01/08 still wt about 223# trying to lose but not happening yet 01/17 He states that his weights are stable. 02/05 He had an initial weight loss after the lasix increased, but says that his weight has been stable for the last week, but can't remember how much he weighs. I stressed the importance of daily weights, and andrews for notifying his Dr for weight gain. He was in the ER on the with a 10-15 pound weight gain. 02/18 States that weight are stable. 02/25 Stable. Constipation?: No : WNL Musculoskeletal, Exercise: WNL Musculoskeletal, Excercise Com: 12/12 getting around house; steady. doesnt need a cane for stability. Enc little more each day 12/24 Tollerating activity well today. 01/08 walking around. when I go to [facility] I walking around lookng for the one item I wnet after and can get a pretty good walk in. Today [facility]'m [facility] and [facility] are going to [facility]. Reminded him to start slowly 02/05 Rec center membership has not been approved yet. He gets out some without difficulty. Mobility/Falls: WNL Mobility Comment: 12/19 I got around quite well today. Integumentary: WNL Except Integumentary Comment: 12/12 sees PT for wounds on at 2:15. 12/19 will go to PT tomorrow and have my legs checkec. 12/24 PT appt today for wounds. 01/08 PT told him last that his leg wounds are almost healed and the swelling pretty much gone 01/17 He sees wound care later today. 02/18 wounds on legs are healed, but still sees PT for a wound on his ankle. 02/25 Wound care continues. Feeling of Well Being: WNL Feeling of Well Being Comment: 12/12 safe being home and using O2 12/19 doing OK" wish I could do more" My parens come by and my is alot of support." 12/24 When I discharged yesterday, they put me back on a higher dose of prednisone, and I feel a lot better. 12/31 I am feeling pretty good. I am feeling better. Thanks for the support! 01/17 I was in the ER last week, I have good days and bad. 02/05 Was in ER again on 01/25. 02/18 Pt feeling better now that he is on prednisone again, but is frustrated that the Dr mcdonald just leave him on it. I explained the health issues related to chronic steroid use. 02/25 "I am getting all of these tests done, but we are not figuring anything out." Socialization: WNL Pain/Management: WNL Scheduled Follow-Up with [facility]: Yes (02/18 Zoltan on 03/06 and pulmonology the next week.) Community Resources/HHC: 12/19 [facility]. Have an appointment w [facility] tomorrow at 1415 and then to PT at [facility] for wound care. I will do the Pul Rehab in one month. 12/24 continuing Voc rehab, PT wound care. 02/05Starts Pulmonary rehab in March. Has contacted [facility] and [facility], but did not qualify for assistance. 02/25 He is not taking spiriva, because he can't afford to get it refilled. 02/18 I gave him the [facility] assistance hotline to check for medication assistance. Questions for Future PCP Visit: 12/24 Losartan/hydrclorithiazide, swelling of legs. 02/18 lab and test results. Needed or Pending Tests: Yes Following Discharge Instructio: Yes TCM Discharge Criteria Medication Knowledge: 12/12 has neb meds but no neb. Enc him to ask [facility] to show him how to use nebulizer when they deliver it. Nebs are only new meds. His parents bought the chantix for him. 12/24 He has not needed to take the chantix, but may once he is out of the house more. 02/05 Taking 2 Nebs per day, lasix 40 mg BID, done with prednisone. 02/18 Taking prednisone 10mg/day, then 5mg/day until he sees the visitor services information assistant. Disease Management/Concern/Wha: COPD Red/Yellow Flags: COPD Transitional Care Comment: 12/07 Concerned about finances. Had business office come and visit with him. States "I'm getting stronger-my O2 is now down to 6 1/2 liters. hopes to go home Saturday.12/08 called pharmacy to see how to obtain coupons to reduce the cost of Chantex. Check sites on internet. was able to find 1 coupon for Chantix This costs approx $387 per starter pkg. I also gave him information on Living will-Advance directive. He thinks he will be going home tomorrow and is receptive in learning. 12/10 preparing for DC. Awaiting O2 tank. Will take mask from here and [facility] will bring new mask and remaining equip to his home in a couple days. Mr Garcia is seriously contaplating changes in his life.He is going to do what he he can to get the Chantex (quit smoking med) to help him and the will try to increase activity. Will be going to outpatient rehab for his legs to be wrapped and then when he can get signed up with Pul Rehab he will do that. 12/11 Left message for pt 12/12 pt returned call. Feels better. able to sleep just a few hours at a time and on his right side awaiting BIPAP thurs. Called pt back to let him know that signed order was fax to [facility] for neb and that he should recieive it this pm and if not to call them. Able to drive to pharmacy and bank. feels better. states was 88% on monitor when he was SOB. Quit smoking 12/19 Seems a little down but states he's doing OK. Hopes something for him to do will come out of visit to [facility]. Has not smoked. Using Chantex 1x daily but has found he doesn't even have the desire at this time. 12/24 Pt was discharged from the hospital yesterday. He was put back on higher dose prednisone, and was given a mask for his neb treatments, and feels better today. He is not smoking, and has not taken chantix, but keeps it incase, once he is getting out more and arround smoke, he feels the need. Sats 91-92% on 6L. Seeing PT for wound care today. 12/31 He is feeling good, will stay on 6L until his Pulmonology appt on jan 14, tollerating Bipap well. 01/08 Feeling better. RT turned his O2 down to 5L while he was up thre on . He is to see the Hemotolgist on Jan 11 for the second time and to see Oulmonologist next saturday. Looking forward to going to [facility]. 01/17 He feels good today, but says it is hit or miss as to how he feels. He can't afford his breathing treatments. 01/25 Left message. 01/30 Left message. 02/01 left message 02/05 ER visit on 01/25 with 10-15 pound weight gain, lasix 40mg BID started. Claims his weights are stable. He sees Vascular and Clinical Veterinarian in the next week. Starts pulm rehab in March. Denied for assistance through [facility] and [facility]. 01/13 Unable to contact 02/13 called; left message 02/14 Left message for Patient. I contacted the ER, and he will be put on a treatment plan, so they will weigh him when he visits the ER instead of getting a stated weight. His weight reporting to TCN and ER may be inconsistant. 02/18 He is doing well again now that he is on prednisone. He is in the process of scheduling many tests and diagniostic procedures ordered by cardiology and pulmonology. Will see Zoltan on 03/06. 02/25 He dsats to 80-83% with activity, but recovers quickly. He has the last of his tests on 03/[address] Charlton on 03/06. He can't afford his Spiriva, or nebs, all assistance resources have been provided previously. He wants to change O2 companies, feels that [employer] is not very helpful. 03/07 left message 03/09 Unable to contact ANASTASIA GILMORE Mar 09, 2017 16:36
--- NOTE | 2017-03-12 16:18 | Transitional Care Management ---
Assessment Cardiac: WNL Cardiac Comment: 12/19 Denies any CP or dizyness. Saw Dr Garner and BP was stable still holding Losartin for this time-until next appt. 12/24 Losartin/hudroclorithiazide still on hold, though his legs are starting to swell. 01/08 Denies CP and swelling in legs much decreased. 01/17 Taking lasix 20 mg daily. 02/05Taking lasix 40mg BID. No edema. 02/18 Lasix 40mg BID, no leg edema, but has swelling in his chest and axilla. Ulrasound/venogram of chest done, awaiting results. 02/25 swelling resolved. Respiratory: WNL Except Respiratory Comment: 12/12 got concentrator and port O2 that goes up to 8 L for home use. states he got nebulizer meds but no nebulizer for them. I contacted [facility] and got signed order then faxdd to [facility]. Pt states he has to carry large port unit and I requested they bring him a carrier. They do not have a BIPAP until . States he plans on pulm rehab when next class begins in a month. Knows limits of O2 tanks is 1/2 hr for little one and 2hr for big one. Doesn't have carrier for tank and asked [facility] to provide one. 12/19 'I'm doing OK. I went to [facility] today. Got a little tired but I went through 2 tanks.' I used the Bipap last PM and think I slept better with it. Slept most of the night with it on" This afternoon I'm going to rest with it on." 12/24 He is 91-92% on 6L, tollerating Bipap, but only sleeps a few hours at a time, new neb mask he feels is more effective. 12/31 Tollerating Bipap well, 6L O2 during the day. RT Rehab won't start again until March but he is registared. 01/17 He is on 3L when resting and 5L with activity. He saw the mac operator on the , and says he has swelling in his neck that they are concerned about. He is not taking his breathing treatments as often as ordered because he can't afford them. "If I take them every eight hours, I have enough to get through a week." 02/05 Reduced SOB since lasix increased, still on 3-5L O2. Starts pulm rehab in March. 02/18 Rehabilitation Teacher restarted prednisone, and he is scheduling an EKG, ECHO, Labs, nocturnal SPO2 monitoring, and will follow up with pulmonary when complete. 02/25 Desats to 80-83% with activity, NOC SPO2 complete. He wants to change oxygen companies, "[facility] acts like they don't know what is going on, and can't answer my questions." GI: Nutrition: WNL GI Comment: 12/19 Eating fair-only eat 2 meals a day and try to lose wt.. We usually eat a late breakfast and then dinner around 1600. Wt Gain/Loss: WNL Weight Comment: 12/19weighted on my scale and wt 12 less than Patsy. But I will cont to go by mine to determinee if I gain wt. 01/08 still wt about 223# trying to lose but not happening yet 01/17 He states that his weights are stable. 02/05 He had an initial weight loss after the lasix increased, but says that his weight has been stable for the last week, but can't remember how much he weighs. I stressed the importance of daily weights, and andrews for notifying his Dr for weight gain. He was in the ER on the with a 10-15 pound weight gain. 02/18 States that weight are stable. 02/25 Stable. Constipation?: No : WNL Musculoskeletal, Exercise: WNL Musculoskeletal, Excercise Com: 12/12 getting around house; steady. doesnt need a cane for stability. Enc little more each day 12/24 Tollerating activity well today. 01/08 walking around. when I go to [facility] I walking around lookng for the one item I wnet after and can get a pretty good walk in. Today I'm going to [facility] and they are going to give me a [facility]. Reminded him to start slowly 02/05 Rec center membership has not been approved yet. He gets out some without difficulty. Mobility/Falls: WNL Mobility Comment: 12/19 I got around quite well today. Integumentary: WNL Except Integumentary Comment: 12/12 sees PT for wounds on at 2:15. 12/19 will go to PT tomorrow and have my legs checkec. 12/24 PT appt today for wounds. 01/08 PT told him last that his leg wounds are almost healed and the swelling pretty much gone 01/17 He sees wound care later today. 02/18 wounds on legs are healed, but still sees PT for a wound on his ankle. 02/25 Wound care continues. Feeling of Well Being: WNL Feeling of Well Being Comment: 12/12 safe being home and using O2 12/19 doing OK" wish I could do more" My parens come by and my is alot of support." 12/24 When I discharged yesterday, they put me back on a higher dose of prednisone, and I feel a lot better. 12/31 I am feeling pretty good. I am feeling better. Thanks for the support! 01/17 I was in the ER last week, I have good days and bad. 02/05 Was in ER again on 01/25. 02/18 Pt feeling better now that he is on prednisone again, but is frustrated that the Dr mcdonald just leave him on it. I explained the health issues related to chronic steroid use. 02/25 "I am getting all of these tests done, but we are not figuring anything out." Socialization: WNL Pain/Management: WNL Scheduled Follow-Up with [facility]: Yes (02/18 Zoltan on 03/06 and pulmonology the next week.) Community Resources/HHC: 12/19 [facility]. Have an appointment w [facility] tomorrow at 1415 and then to PT at [facility] for wound care. I will do the Pul Rehab in one month. 12/24 continuing Voc rehab, PT wound care. 02/05Starts Pulmonary rehab in March. Has contacted [facility] and [facility], but did not qualify for assistance. 02/25 He is not taking spiriva, because he can't afford to get it refilled. 02/18 I gave him the [facility] assistance hotline to check for medication assistance. Questions for Future PCP Visit: 12/24 Losartan/hydrclorithiazide, swelling of legs. 02/18 lab and test results. Needed or Pending Tests: Yes Following Discharge Instructio: Yes TCM Discharge Criteria Medication Knowledge: 12/12 has neb meds but no neb. Enc him to ask [facility] to show him how to use nebulizer when they deliver it. Nebs are only new meds. His parents bought the chantix for him. 12/24 He has not needed to take the chantix, but may once he is out of the house more. 02/05 Taking 2 Nebs per day, lasix 40 mg BID, done with prednisone. 02/18 Taking prednisone 10mg/day, then 5mg/day until he sees the mac operator. Disease Management/Concern/Wha: COPD Red/Yellow Flags: COPD Transitional Care Comment: 12/07 Concerned about finances. Had business office come and visit with him. States "I'm getting stronger-my O2 is now down to 6 1/2 liters. hopes to go home Saturday.12/08 called pharmacy to see how to obtain coupons to reduce the cost of Chantex. Check sites on internet. was able to find 1 coupon for Chantix This costs approx $387 per starter pkg. I also gave him information on Living will-Advance directive. He thinks he will be going home tomorrow and is receptive in learning. 12/10 preparing for DC. Awaiting O2 tank. Will take mask from here and [facility] will bring new mask and remaining equip to his home in a couple days. Mr Garcia is seriously contaplating changes in his life.He is going to do what he he can to get the Chantex (quit smoking med) to help him and the will try to increase activity. Will be going to outpatient rehab for his legs to be wrapped and then when he can get signed up with Pul Rehab he will do that. 12/11 Left message for pt 12/12 pt returned call. Feels better. able to sleep just a few hours at a time and on his right side awaiting BIPAP thurs. Called pt back to let him know that signed order was fax to [facility] for neb and that he should recieive it this pm and if not to call them. Able to drive to pharmacy and bank. feels better. states was 88% on monitor when he was SOB. Quit smoking 12/19 Seems a little down but states he's doing OK. Hopes something for him to do will come out of visit to [facility]. Has not smoked. Using Chantex 1x daily but has found he doesn't even have the desire at this time. 12/24 Pt was discharged from the hospital yesterday. He was put back on higher dose prednisone, and was given a mask for his neb treatments, and feels better today. He is not smoking, and has not taken chantix, but keeps it incase, once he is getting out more and arround smoke, he feels the need. Sats 91-92% on 6L. Seeing PT for wound care today. 12/31 He is feeling good, will stay on 6L until his Pulmonology appt on jan 14, tollerating Bipap well. 01/08 Feeling better. RT turned his O2 down to 5L while he was up thre on . He is to see the Hemotolgist on Jan 11 for the second time and to see Oulmonologist next saturday. Looking forward to going to [facility]. 01/17 He feels good today, but says it is hit or miss as to how he feels. He can't afford his breathing treatments. 01/25 Left message. 01/30 Left message. 02/01 left message 02/05 ER visit on 01/25 with 10-15 pound weight gain, lasix 40mg BID started. Claims his weights are stable. He sees Vascular and Rehabilitation Teacher in the next week. Starts pulm rehab in March. Denied for assistance through [facility] and [facility]. 01/13 Unable to contact 02/13 called; left message 02/14 Left message for Patient. I contacted the ER, and he will be put on a treatment plan, so they will weigh him when he visits the ER instead of getting a stated weight. His weight reporting to [facility]CN and ER may be inconsistant. 02/18 He is doing well again now that he is on prednisone. He is in the process of scheduling many tests and diagniostic procedures ordered by cardiology and pulmonology. Will see Zoltan on 03/06. 02/25 He dsats to 80-83% with activity, but recovers quickly. He has the last of his tests on 03/[address] Charlton on 03/06. He can't afford his Spiriva, or nebs, all assistance resources have been provided previously. He wants to change O2 companies, feels that [employer] is not very helpful. left message 03/09 Unable to contact 03/12 mala to call MD bauer: US results and to update him on med changes i.e. if he isn't taking something on the list because of the cost that it should be removed.Told him we have to discharge him REKHA ANNA Mar 12, 2017 16:18
[2017-03-14] MEDS ORDERED: ATOR10TA65 PO (09:27)
[2017-03-14] MEDS ORDERED: PNEI IJ (09:27)
[2017-03-15] MEDS ORDERED: PREG50CA48 PO (12:11)
[2017-03-15] MEDS ORDERED: OXYC5TAB38 PO (12:11)
[2017-03-20] MEDS ORDERED: GABA-547 PO (08:27)
== END 2017-03-20 17:52 | disposition home or self-care (01) ==
LOC: TCM 16:04
PROVIDERS: ATTEND Nurse Practitioner
DX: Z02.9 Encounter for administrative examinations, unspecified (principal)

== ENCOUNTER → 2017-03-05 | Outpatient (CLI) | payer MEDICARE, OTHER ==
[2016-12-23 12:47] VITALS: BMI 29.4
[~2017-03-05] MED LIST changes: +CEF300 PO; +FLUT1DIS28 INH; +FURO20TA19 PO; +FURO40TA35 PO; +OXYC5TAB38 PO; +POTA10CA40 PO; +POTA20TA85 PO; +PRED-1 PO; +TIO18R INH
--- NOTE | 2017-03-05 10:12 | EKG ---
FAC[place] [facility] [place]IENT NAME: YOAV GRAHAM : [id number] MR: [id number] V: [id number] EXAM DATE: ORDERING PHYSICIAN: LATA RAMIREZ TECHNOLOGIST: TORO Test Reason : COPD Blood Pressure : / mmHG Vent. Rate : 084 BPM Atrial Rate : 084 BPM P-R Int : 144 ms QRS Dur : 092 ms QT Int : 392 ms P-R-T Axes : 080 078 074 degrees QTc Int : 463 ms Normal sinus rhythm Normal ECG When compared with ECG of 10-FEB-2017 13:05, No significant change was found Confirmed by BART HERR ([id number] on 03/05/2017 7:49:23 PM Referred By: JAMES Confirmed By:BART HERR
== END ==
LOC: RESP 07:35
PROVIDERS: ATTEND Internal Medicine
DX: J44.9 Chronic obstructive pulmonary disease, unspecified (principal); J98.4 Other disorders of lung
CPT/HCPCS: 93005; 94060; 94726; 94729

== ENCOUNTER 2017-03-07 14:00 | Outpatient (RCR) | payer MEDICARE ==
--- NOTE | 2016-12-18 09:33 | PT INITIAL EVALUATION ---
MEDICAL DIAGNOSIS: mixed venous/arterial insufficiency wounds TREATMENT DIAGNOSIS: same DATE OF ONSET: 11/03/16 SUBJECTIVE: Pt recently hospitalized due to breathing difficulties. Pt was seen previously by this PT for B) LE ulcers at anterior shins related to venous insufficiency and B) medial ankle ulcers likely related to arterial insufficiency. ABIs unable to be checked in out pt setting due to pt's inability to lay flat due to breathing. While pt was supported with increased O2 and bipap in hospital, ABIs were completed, and an arterial compromise was noted specifically in the L) LE. Hospitalist has encouraged follow up with PCP and vascular surgeon to address this result. Pt arrives with dressings still somewhat intact on R) LE and mostly dislodged on L) LE. REHAB PROBLEM LIST: Open wounds to B) lower legs PREVIOUS MEDICAL HISTORY: Please refer to EMR for details. OBJECTIVE: Wounds at B) shins primarily healed with fragile dry skin noted and cared for with lotion to protect. B) medial ankle wounds are more likely related to arterial insufficiency. R) medial ankle ulcer measures: 3.4cm L x 2.3cm W x 0.3cm D. L) medial ankle ulcer measures: 1.8cm L x 3.2cm W x 0.3cm D. ASSESSMENT: For B) medial ankles: Non-excisional debridement completed with the use of tweezers to a depth of subcutaneous tissue in order to remove adhered yellow slough. Wound cleansed with sterile saline and santyl applied to wound beds followed by Mepilex border 4x4 dressing. Previous wounds at B) shins have healed, including medial and posterior calf of L) Lower leg. Skin remains tight and fragile, but not currently weeping. Skin treated with gentle cream application and pt encouraged to shower and apply cream at home. Short Term Goals 1) Wounds to present 100% granulation bed 2) No further signs or symptoms of infection to be noted. 3) Circumferential measurements of bilateral lower legs to decrease overall, indicating more manageable edema. 4) Wounds to be fully epithelialized. Patient's Goals Wounds to heal without further complications. PLAN: Patient to be seen for further conservative selective debridement to remove slough and non viable tissue, with the use of advanced wound care products to manage drainage and edema effectively. Encourage follow up with vascular surgeon as ordered by [facility] to address arterial perfusion in lower extremities. 2x/Week for up to 3 months Thank you for this referral. If you have any questions, comments, or concerns about this report or plan, please contact me at . H. Michelle Schumacher PT, MPT [facility]
--- NOTE | 2016-12-18 09:40 | PT PLAN OF CARE ---
Physician: Dr. Garner Patient is being seen: Stevenson Garcia Therapist: Melissa Schumacher, PT, MPT Medical Diagnosis: mixed venous/arterial insufficiency wounds Treatment Diagnosis: same Date of Onset: 11/03/16 Date of Initial Evaluation: Date patient was last seen: 12/13/16 Number of treatments: 1 (Re-eval on 12/13 after hospitalization). Pt now re- hospitalized Number of cancellations/No shows: 0 INTERVENTIONS: Conservative selective debridement to remove slough and non viable tissue, with the use of advanced wound care products to manage drainage and edema effectively. GOALS: 1) Wounds to present 100% granulation bed 2) No further signs or symptoms of infection to be noted. 3) Circumferential measurements of bilateral lower legs to decrease overall, indicating more manageable edema. 4) Wounds to be fully epithelialized. PATIENT'S GOAL: Wounds to heal without further complications. Status of Patient's Goals: Not yet met Patient Compliance: Good overall Prognosis: Good Reasons for continuing therapy: Pt admitted to hospital for further COPD concerns. CPAP was not functioning properly. Plan will be to re-eval for further wound care needs upon discharge from hospital again. SILVIA
--- NOTE | 2016-12-20 18:04 | PT PLAN OF CARE ---
Physician: Dr. Garner Patient is being seen: Stevenson Garcia Therapist: Melissa Schumacher, PT, MPT Medical Diagnosis: mixed venous/arterial insufficiency wounds Treatment Diagnosis: same Date of Onset: 11/03/16 Date of Re-Evaluation: 12/13/16 Date patient was last seen: 12/20/16 Number of treatments: 2 Number of cancellations/No shows: 0 INTERVENTIONS: Conservative selective debridement to remove slough and non viable tissue, with the use of advanced wound care products to manage drainage and edema effectively. GOALS: 1) Wounds to present 100% granulation bed 2) No further signs or symptoms of infection to be noted. 3) Circumferential measurements of bilateral lower legs to decrease overall, indicating more manageable edema. 4) Wounds to be fully epithelialized. PATIENT'S GOAL: Wounds to heal without further complications. Status of Patient's Goals: progressing Patient Compliance: Good overall Prognosis: Good Reasons for continuing therapy: Pt re-admitted to hospital for further COPD concerns. CPAP was not functioning properly. Pt arrives on 12/20/16 for re-eval to continue out pt wound care. B) anterior shins primarily healed but with some ongoing redness and irritation with dry skin. Pt encouraged to apply gentle lotion and elevate LE's as tolerated to reduce edema. Pt also notes that his medication with HCTZ has been stopped, as his BP has been lower. This may have contributed to LE's becoming more edematous again today. Compression is currently not indicated on L) LE due to potential for arterial insufficiency according to previous ESSIE measurement performed while in the hospital. Pt notes that he does have an appointment with vascular specialist on 01/29/17, fabrication and layout craftsman on 01/14/17 and with pulmonology physician on 12/28/16. Pt also indicates that his CPAP is working now and he should be able to sleep better with some lower extremity elevation. Pt does have some questions regarding his antibiotic, which "runs out tomorrow" per pt report as well as the plan for tapering his steroid dose. Pt was instructed to call back to PCP office to clarify these medication related questions. Pt continues to have slow healing wounds present at B) medial ankles that are responding very well to application of santyl. PT to continue with twice weekly visits for conservative, selective debridement as indicated, in order to encourage further wound healing in addition to selection of advanced wound care products to manage drainage effectively. Anticipate twice weekly. MTDD
[2016-12-23 12:47] VITALS: BMI 29.4
[~2017-03-07 14:00] MED LIST changes: -ATOR10TA65 PO; -GABA-547 PO; -PNEI IJ; -PREG50CA48 PO
[2017-03-14] MEDS ORDERED: PNEI IJ (09:27)
[2017-03-14] MEDS ORDERED: ATOR10TA65 PO (09:27)
== END 2017-03-13 ==
LOC: PT 14:00
PROVIDERS: ATTEND Family Medicine
DX: L03.115 Cellulitis of right lower limb (principal); L03.116 Cellulitis of left lower limb; I70.25 Atherosclerosis of native arteries of other extremities with ulceration; L98.492 Non-pressure chronic ulcer of skin of other sites with fat layer exposed
CPT/HCPCS: 97161

== ENCOUNTER → 2017-03-07 | Outpatient (CLI) | payer MEDICARE ==
[2016-12-23 12:47] VITALS: BMI 29.4
[~2017-03-07] MED LIST changes: +ATOR10TA65 PO; +GABA-547 PO; +PNEI IJ; +PREG50CA48 PO
[2017-03-07 15:21] LABS: PLATELET COUNT, AUTOMATED 251 K/uL (150-450)
[2017-03-07 15:25] LABS: INR 1.14
[2017-03-07 15:45] LABS: LDL CHOLESTEROL 131 mg/dl
--- NOTE | 2017-03-07 17:07 | RADIOLOGY IMAGING REPORT ---
FACILITY: [facility] PATIENT NAME: Azam Garcia : 1965 MR: [id number] V: [id number] EXAM DATE: ORDERING PHYSICIAN: BROOKLYN CORMIER TECHNOLOGIST: Location: [facility] Patient: Azam Garcia : 1965 Visit/Account:[id number] Date of Sevice: 03/07/2017 EXAMINATION: Abdominal ultrasound complete HISTORY: Ascites, elevated LFTs COMPARISON: CT abdomen pelvis June 21, 2015 FINDINGS: Gallbladder: No stones, wall thickening, pericholecystic fluid or sonographic Low sign. Liver: Hepatomegaly with liver measuring 20 cm in length. There is increased echogenicity throughout liver which can be seen with fatty infiltration or other infiltrative process Common duct: Normal measuring 5.2 mm. Pancreas: Not well seen due to overlying bowel gas Spleen: Normal in size and echogenicity measuring 10 cm in length. Kidneys: Normal in size and echogenicity, the right measures 11.7 cm in length, and the left 12.7 cm . No hydronephrosis. Upper abdominal aorta and IVC: Not evaluated due to overlying bowel gas Ascites: None. IMPRESSION: Hepatomegaly with increased echogenicity throughout the liver which can be seen with fatty infiltrati on or other infiltrative process. The pancreas could not be evaluated due to overlying bowel gas Report Dictated By: Macy Gonzalez MD at 03/07/2017 4:59 PM Report E-Signed By: Macy Gonzalez MD at 03/07/2017 5:03 PM WSN:MAYUR
== END ==
LOC: US 07:01
PROVIDERS: ATTEND Internal Medicine
DX: Z12.5 Encounter for screening for malignant neoplasm of prostate (principal); R18.8 Other ascites; J43.8 Other emphysema; R60.9 Edema, unspecified; R79.89 Other specified abnormal findings of blood chemistry; E87.1 Hypo-osmolality and hyponatremia; E66.9 Obesity, unspecified; R06.02 Shortness of breath; R73.9 Hyperglycemia, unspecified; K76.0 Fatty (change of) liver, not elsewhere classified; R10.9 Unspecified abdominal pain
CPT/HCPCS: 36415; 76700; 80074; 82728; 83036; 83540; 83550; 84443; 85025; 85610; 86038; G0103; 82040; 82247; 82310; 82374; 82435; 82465; 82565; 82947; 83718; 84075; 84132; 84153; 84155; 84295; 84450; 84460; 84478; 84520

== ENCOUNTER → 2017-04-05 | Outpatient (CLI) | payer MEDICARE ==
[2016-12-23 12:47] VITALS: BMI 29.4
[~2017-04-05] MED LIST changes: +ATOR10TA65 PO; +GABA-547 PO; +PNEI IJ; +PREG50CA48 PO
== END ==
LOC: RESP 20:40
PROVIDERS: ATTEND Internal Medicine
DX: G47.30 Sleep apnea, unspecified (principal); G47.61 Periodic limb movement disorder; G47.36 Sleep related hypoventilation in conditions classified elsewhere; E66.9 Obesity, unspecified

== ENCOUNTER → 2017-04-16 | Outpatient (CLI) | payer MEDICARE ==
[2016-12-23 12:47] VITALS: BMI 29.4
== END ==
LOC: LAB 11:02
PROVIDERS: ATTEND Internal Medicine
DX: J43.2 Centrilobular emphysema (principal)
CPT/HCPCS: 36415; 82310; 82374; 82435; 82565; 82947; 84132; 84295; 84520

== ENCOUNTER → 2017-04-18 | Outpatient (RCR) | payer MEDICARE ==
[2016-12-23 12:47] VITALS: BMI 29.4
== END ==
LOC: RESP 03-14 14:06
PROVIDERS: ATTEND Internal Medicine
DX: J44.9 Chronic obstructive pulmonary disease, unspecified (principal)
CPT/HCPCS: G0424 ×7

== ENCOUNTER → 2017-05-02 | Outpatient (CLI) | payer MEDICARE ==
[2016-12-23 12:47] VITALS: BMI 29.4
[2017-05-02 12:34] LABS: PLATELET COUNT, AUTOMATED 318 K/uL (150-450)
== END ==
LOC: LAB 12:09
PROVIDERS: ATTEND Internal Medicine
DX: D72.829 Elevated white blood cell count, unspecified (principal)
CPT/HCPCS: 36415; 85025

== ENCOUNTER → 2017-05-02 | Outpatient (CLI) | payer MEDICARE ==
[2016-12-23 12:47] VITALS: BMI 29.4
== END ==
LOC: LAB 12:06
PROVIDERS: ATTEND Internal Medicine
DX: G47.33 Obstructive sleep apnea (adult) (pediatric) (principal)
CPT/HCPCS: 82310; 82374; 82435; 82565; 82947; 84132; 84295; 84520

== ENCOUNTER 2017-05-09 11:37 | Outpatient (RCR) | payer MEDICARE ==
[2016-12-23 12:47] VITALS: Wt 115.8 kg
[2017-05-09 12:07] VITALS: BP 142/78
--- NOTE | 2017-05-09 20:06 | ONCOLOGY FOLLOW UP NOTE ---
EVENT DATE: May 09, 2017 DIAGNOSES 1. Reactive leukocytosis. 2. Erythrocytosis. 3. Chronic obstructive pulmonary disease. CHIEF COMPLAINT Patient is here today for followup of his erythrocytosis and leukocytosis. HEMATOLOGY HISTORY Patient is a 51-year-old male ex-smoker with COPD. He is using BiPAP at home. He had recent cellulitis of the skin and has also history of Meniere's disease. Patient was found to have a high white blood cell count recently. He was in the hospital in December of 2016 with cellulitis. His white count at that time on December 16, 2016 showed white count 28.8, hemoglobin 17.2, hematocrit 51.1, platelets 251,000. ANC was 27.1. Patient also was using steroids for his COPD and his last CBC done on December 19, 2016 showed a white count of 12.6, hemoglobin 17.1, hematocrit 50.8% and platelets 209,000. ANC is 10.2. JAK2 mutation analysis for V617F mutation and Exon 12 mutation came back negative. Lab score was slightly high at 184. HISTORY OF PRESENT ILLNESS Patient is here today for followup of his leukocytosis and erythrocytosis. He is totally asymptomatic. Denies any constitutional symptoms. PAST MEDICAL HISTORY 1. Meniere's disease. 2. COPD. 3. Cellulitis. PAST SURGICAL HISTORY [place] tooth extraction. FAMILY HISTORY Negative for cancer or blood diseases. SOCIAL HISTORY Patient is with no children. He is on medical mcfp. He quit smoking on December 03, 2016 after one pack a day for 35 years. He drinks sometimes. Denies any abuse of illicit drugs. CURRENT MEDICATIONS 1. Prednisone tapering dose, currently on 30 mg. 2. Advair 250/50 twice a day. 3. Ipratropium/albuterol inhaler by nebulizer four times daily. 4. Albuterol 2.5 mg inhalation q.2 hourly p.r.n. 5. Aspirin 81 mg daily. ALLERGIES No known drug allergies. REVIEW OF SYSTEMS CONSTITUTIONAL: No appetite or weight change. No fever, chills or sweating. No recent infection. HEENT: Ears: No tinnitus or hearing problem. Nose: No nasal discharge or epistaxis. Throat: No sore throat or mouth ulcers. Eyes: No diplopia or visual changes. RESPIRATORY: No shortness of breath. No cough, expectoration or hemoptysis. CARDIOVASCULAR: No chest pain, orthopnea, or paroxysmal nocturnal dyspnea (PND) . No edema. No palpitations. GASTROINTESTINAL: No nausea or vomiting. No diarrhea or constipation. No change in bowel movements. No heartburn or swallowing difficulties. No abdominal pain. No jaundice. No hematemesis, melena or rectal bleeding. GENITOURINARY: No hematuria or dysuria. MUSCULOSKELETAL: No pain in the muscles, joints or bones. NEUROLOGICAL: No tingling or numbness in the hands or feet. No headaches or convulsions. HEMATOLOGIC/LYMPHATIC: No bleeding or easy bruising. No weakness or fatigue. No enlarged lymph nodes. SKIN: No skin rash or lumps. PSYCHIATRIC: No anxiety or depression. PHYSICAL EXAMINATION GENERAL: Looks stable. Well-developed, well-nourished, and in no acute distress. VITAL SIGNS: Blood pressure 142/78, pulse 73 per minute, respirations 16 per minute, temperature 97.4, pulse ox 92% on 3L oxygen. HEENT: Head: Atraumatic. No sinus tenderness to palpation. Eyes: No icterus or conjunctivitis. Mouth and throat: No oral thrush or mucositis. NECK: Supple. No cervical or supraclavicular lymphadenopathy. LUNGS: Clear to auscultation and percussion bilaterally. HEART: Regular rate and rhythm. No gallops, murmurs, clicks or rubs. ABDOMEN: Soft and lax. No tenderness. No hepatosplenomegaly. No masses. EXTREMITIES: No cyanosis, clubbing or edema. LYMPHATICS: No peripheral lymphadenopathy. NEUROLOGICAL: Conscious, alert and oriented times three. No focal motor or sensory deficits. PSYCHIATRIC: Mood and affect appear normal. SKIN: No skin rash, bruise or purpuric eruption. DIAGNOSTIC DATA CBC showed white count 12,000, hemoglobin 14.5, hematocrit 42.8, platelets 318, 000. Chem panel totally normal except sodium 136. JAK2 mutation analysis came back negative for V617F mutation and Exon 12 mutation. Lab score was 184. ASSESSMENT 1. Reactive leukocytosis, most probably due to combined use of steroid and albuterol and previous infection. His current white count is 12,000. JAK2 mutation analysis for V617F mutation and Exon 12 mutation came back negative. Lab score was 184. There is no evidence of myeloproliferative disorder. I am planning to repeat his count in six months from now. 2. Erythrocytosis post JAK2 mutation for V617F mutation and Exon 12 mutation came back negative. Erythropoietin level was low at 1, suspicious for polycythemia vera. I am planning to see him again in six months with repeat EPO level at that time. His current hemoglobin is 14.5 and hematocrit 42.8. I am doubting the patient may have polycythemia vera. It is reactive from his COPD. 2. Chronic obstructive pulmonary disease, on home oxygen. PLAN 1. Continue followup. 2. Patient to return in six months with CBC and EPO level. 3. Patient to contact us for any new concerns or complaints. SILVIA
[2017-06-03] MEDS ORDERED: PRED-317 PO (09:25)
[2017-06-03] MEDS ORDERED: MAGN250T5 PO (09:25)
[2017-06-03] MEDS ORDERED: FURO40TA35 PO (09:25)
== END 2017-06-05 14:30 | disposition home or self-care (01) ==
LOC: ONC 11:37
PROVIDERS: ATTEND Internal Medicine Hematology
DX: D72.829 Elevated white blood cell count, unspecified (principal); D75.1 Secondary polycythemia; J44.9 Chronic obstructive pulmonary disease, unspecified; Z99.81 Dependence on supplemental oxygen; Z87.891 Personal history of nicotine dependence; Z79.82 Long term (current) use of aspirin; Z79.899 Other long term (current) drug therapy
CPT/HCPCS: 99212

== ENCOUNTER 2017-05-23 09:00 | Outpatient (RCR) | payer MEDICARE ==
[2016-12-23 12:47] VITALS: BMI 29.4
== END 2017-05-28 ==
LOC: RESP 09:00
PROVIDERS: ATTEND Internal Medicine
DX: J44.9 Chronic obstructive pulmonary disease, unspecified (principal)
CPT/HCPCS: G0424 ×8

== ENCOUNTER 2017-05-23 11:15 | Outpatient (RCR) | payer MEDICARE ==
[2016-12-23 12:47] VITALS: BMI 29.4
--- NOTE | 2017-03-15 19:43 | PT PLAN OF CARE ---
Physician: Dr. Charlton Patient is being seen: Stevenson Garcia Therapist: Melissa Schumacher, PT, MPT Medical Diagnosis: B) medial ankles; Mixed venous/arterial insufficiency ulcers Treatment Diagnosis: same Date of Onset: 11/03/16 Date of Re-Evaluation: 12/13/16 after hospitalization; 12/20/16 after hospitalization 03/14/17 after treatment greater than 3 months Date patient was last seen: 03/14/17 Number of treatments: 17 Number of cancellations/No shows: 2 INTERVENTIONS: Non-excisional debridement and use of santyl as indicated to address slough and non-viable tissue at painful medial ankle lesions. Will attempt very gentle compression as pt has followed up with a vascular surgeon and there appears to be no significant blockage in blood flow at this time. Product selection for advanced wound care products to manage drainage effectively and pt encouraged to follow up with pulmonary rehab as scheduled to address respiratory issues as well. Pt reports that he is currently on a fluid restriction and decreased salt intake prescribed as well. GOALS: 1) Wounds to present 100% granulation bed 2) No further signs or symptoms of infection to be noted. 3) Circumferential measurements of bilateral lower legs to decrease overall, indicating more manageable edema. 4) Wounds to be fully epithelialized. PATIENT'S GOAL: Wounds to heal without further complications. Status of Patient's Goals: progressing slowly but with good pt participation and follow through with all specialists and MD visits as scheduled. Patient Compliance: Good overall; pt somewhat frustrated with slow progress Prognosis: Good Reasons for continuing therapy: B) anterior wooten wounds have healed, however, B ) medial ankle wounds continue to be very painful and slow to heal. CG changes dressings twice weekly and pt arrives for PT visits that include selective debridement and inspection once weekly. Pt would benefit from another trial of gentle compression wraps, as arterial insufficiency does not appear to be a large concern and pt may benefit from this approach, as long as this does not exacerbate further respiratory concerns. Pt is now following up with pulmonary rehab as well, and they will assist in monitoring this possible complication while compression wraps are tried. R) medial ankle wound measures: 0.7cm L x 0.5cm W x 0.2cm D L) medial ankle wound measures: 0.4cm L x 0.4cm W x 0.2cm D Girth measurements: R) ankle 31.5cm; R) calf 44.3cm L) ankle 30cm; L) calf 44.5cm Length: 52cm MTDD
[2017-06-03] MEDS ORDERED: PRED-317 PO (09:25)
[2017-06-03] MEDS ORDERED: FURO40TA35 PO (09:25)
[2017-06-03] MEDS ORDERED: MAGN250T5 PO (09:25)
== END 2017-06-12 ==
LOC: PT 11:15
PROVIDERS: ATTEND Family Medicine
DX: L03.115 Cellulitis of right lower limb (principal); L03.116 Cellulitis of left lower limb; I70.25 Atherosclerosis of native arteries of other extremities with ulceration; L98.492 Non-pressure chronic ulcer of skin of other sites with fat layer exposed; I87.2 Venous insufficiency (chronic) (peripheral)
CPT/HCPCS: 97161

== ENCOUNTER → 2017-06-06 | Outpatient (CLI) | payer MEDICARE ==
[2016-12-23 12:47] VITALS: BMI 29.4
[~2017-06-06] MED LIST changes: +MAGN250T5 PO; +PRED-317 PO
[2017-06-06 12:49] LABS: LDL CHOLESTEROL 64 mg/dl
== END ==
LOC: LAB 11:43
PROVIDERS: ATTEND Internal Medicine
DX: J44.9 Chronic obstructive pulmonary disease, unspecified (principal); G47.33 Obstructive sleep apnea (adult) (pediatric); R79.89 Other specified abnormal findings of blood chemistry; I83.009 Varicose veins of unspecified lower extremity with ulcer of unspecified site; R25.2 Cramp and spasm; E78.5 Hyperlipidemia, unspecified
CPT/HCPCS: 36415; 81256; 82040; 82247; 82310; 82374; 82435; 82465; 82565; 82728; 82947; 83540; 83550; 83718; 83735; 84075; 84132; 84155; 84295; 84402; 84403; 84450; 84460; 84478; 84520

== ENCOUNTER 2017-06-13 12:30 | Outpatient (RCR) | payer MEDICARE ==
[2016-12-23 12:47] VITALS: BMI 29.4
== END 2017-07-09 ==
LOC: RESP 12:30
PROVIDERS: ATTEND Internal Medicine
DX: J44.9 Chronic obstructive pulmonary disease, unspecified (principal)
CPT/HCPCS: G0424 ×2

== ENCOUNTER → 2017-07-09 | Outpatient (CLI) | payer MEDICARE ==
[2016-12-23 12:47] VITALS: BMI 29.4
== END ==
LOC: RESP 08:18
PROVIDERS: ATTEND Internal Medicine
DX: G47.33 Obstructive sleep apnea (adult) (pediatric) (principal)

== ENCOUNTER 2017-09-05 11:18 | Outpatient (RCR) | payer MEDICARE ==
[2016-12-23 12:47] VITALS: BMI 29.4
--- NOTE | 2017-06-13 17:16 | PT PLAN OF CARE ---
Physician: Dr. Charlton Patient is being seen: Stevenson Garcia Therapist: Melissa Schumacher, PT, MPT Medical Diagnosis: B) medial ankles; Mixed venous/arterial insufficiency ulcers Treatment Diagnosis: same Date of Onset: 11/03/16 Date of Initial Evaluation: 03/14/17 Date patient was last seen: 06/13/17 Number of treatments: 27 Number of cancellations/No shows: 4 INTERVENTIONS: Non-excisional debridement and use of santyl as indicated to address slough and non-viable tissue at painful medial ankle lesions. Attempting gentle compression with use of coflex wraps alternating with Medidual layer compression stockings, as pt has followed up with a vascular surgeon and there appears to be no significant blockage in blood flow at this time. Product selection for advanced wound care products to manage drainage effectively and pt has completed pulmonary rehab class to address respiratory issues as well. Pt reports that he is currently on a fluid restriction and decreased salt intake prescribed as well. GOALS: 1) Wounds to present 100% granulation bed- progressing well with debridement 2) No further signs or symptoms of infection to be noted.- progressing well with no current signs 3) Circumferential measurements of bilateral lower legs to decrease overall, indicating more manageable edema.- decreased overall by 5cm 4) Wounds to be fully epithelialized.- smaller in size PATIENT'S GOAL: Wounds to heal without further complications.- Slow by steady progress Status of Patient's Goals: gradual progress Patient Compliance: Good; pt attends maintenance programs to continue with cardiopulmonary rehab Prognosis: Good Reasons for continuing therapy: Wound continues to be open and draining, but gradual improvement is noted. Previous wound measurements: R) medial ankle wound measures: 0.7cm L x 0.5cm W x 0.2cm D L) medial ankle wound measures: 0.4cm L x 0.4cm W x 0.2cm D Current wound measurements: R) medial ankle: 0.3cm L x 0.3cm W x 0.2cm D L) medial ankle: 0.2cm L x 0.4cm W x 0.2cm D Thank you for this referral. If you have any questions, comments, or concerns about this report or plan, please contact me at . Melissa Schumacher, PT, MPT [facility]
[~2017-09-05 11:18] MED LIST changes: -CITA-139 PO; +CITA-145 PO
--- NOTE | 2017-09-05 18:28 | PT PLAN OF CARE ---
Physician: Dr. Charlton Patient is being seen: Stevenson Garcia Therapist: Melissa Schumacher, PT, MPT Medical Diagnosis: B) medial ankles; Mixed venous/arterial insufficiency ulcers Treatment Diagnosis: same Date of Onset: 11/03/16 Date of Initial Evaluation: 03/14/17 Date patient was last seen: 09/05/17 Number of treatments: 37 Number of cancellations/No shows: 7 INTERVENTIONS: Non-excisional debridement and use of santyl as indicated to address slough and non-viable tissue at painful medial ankle lesions. Transitioned to medi dual layer compression stockings with pt instructed on indep application with sock aid, for edema management. Advanced wound care product selection to manage drainage appropriately. GOALS: 1) Wounds to present 100% granulation bed- Met 2) No further signs or symptoms of infection to be noted.- Met 3) Circumferential measurements of bilateral lower legs to decrease overall, indicating more manageable edema.- Met 4) Wounds to be fully epithelialized.- Met PATIENT'S GOAL: Wounds to heal without further complications.- Met Status of Patient's Goals: Met Patient Compliance: Excellent; pt demonstrates consistency and indep with application of compression stockings and changes bordered gauze dressings as needed after showers to protect at risk areas of previous breakdown. Prognosis: Good Reasons for continuing therapy: None at this time as wound areas are no longer weeping and pt demos appropriate compliance with edema reduction strategies to prevent further exacerbation of venous insufficiency wounds. Thank you for this referral. If you have any questions, comments, or concerns about this report or plan, please contact me at . Melissa Schumacher, PT, MPT [facility]
== END 2017-09-05 18:00 | disposition home or self-care (01) ==
LOC: PT 11:18
PROVIDERS: ATTEND Family Medicine
DX: L03.115 Cellulitis of right lower limb (principal); L03.116 Cellulitis of left lower limb; I70.25 Atherosclerosis of native arteries of other extremities with ulceration; L98.492 Non-pressure chronic ulcer of skin of other sites with fat layer exposed; I87.2 Venous insufficiency (chronic) (peripheral)

== ENCOUNTER → 2017-09-17 | Outpatient (CLI) | payer MEDICARE ==
[2016-12-23 12:47] VITALS: BMI 29.4
== END ==
LOC: LAB 09-12 08:57
PROVIDERS: ATTEND Internal Medicine
DX: J43.2 Centrilobular emphysema (principal); E83.42 Hypomagnesemia
CPT/HCPCS: 36415; 82310; 82374; 82435; 82565; 82947; 83735; 84132; 84295; 84520

== ENCOUNTER 2017-11-14 09:36 | Outpatient (RCR) | payer MEDICARE ==
[2016-12-23 12:47] VITALS: Wt 108.0 kg
[2017-11-13 10:00] VITALS: BP 146/81
[2017-11-13 10:20] LABS: PLATELET COUNT, AUTOMATED 327 K/uL (150-450)
[~2017-11-14 09:36] MED LIST changes: +IPRA3AMP10 IH; -IPRA3AMP21 IH
[2017-11-14 09:52] VITALS: BP 138/80
--- NOTE | 2017-11-14 15:02 | ONCOLOGY FOLLOW UP NOTE ---
EVENT DATE: November 14, 2017 DIAGNOSES 1. Reactive leukocytosis. 2. Erythrocytosis. 3. Chronic obstructive pulmonary disease. CHIEF COMPLAINT Patient is here today for followup of his erythrocytosis and leukocytosis. HEMATOLOGY HISTORY Patient is a 52-year-old male ex-smoker with COPD. He is using BiPAP at home. He had recent cellulitis of the skin and has also history of Meniere disease. Patient was found to have a high white blood cell count recently. He was in the hospital in December 2016 with cellulitis. His white count at that time on December 16, 2016, showed white count 28.8, hemoglobin 17.2, hematocrit 51.1, platelets 251,000. ANC was 27.1. Patient also was using steroids for his COPD, and his last CBC done on December 19, 2016, showed a white count of 12.6, hemoglobin 17.1, hematocrit 50.8%, and platelets 209,000. ANC was 10.2. JAK2 mutation analysis for V617F mutation and exon 12 mutation came back negative. Lab score was slightly high at 184. HISTORY OF PRESENT ILLNESS Patient is here today for followup of his leukocytosis and erythrocytosis. He is doing fine currently. He is on oxygen all the time, but he is complaining of cramps in his sides lately. PAST MEDICAL HISTORY 1. Meniere disease. 2. COPD. 3. Cellulitis. PAST SURGICAL HISTORY [place] tooth extraction. FAMILY HISTORY Negative for cancer or blood diseases. SOCIAL HISTORY Patient is with no children. He is on medical skilled nursing. He quit smoking on December 03, 2016, after one pack a day for 35 years. He drinks sometimes. Denies any abuse of illicit drugs. CURRENT MEDICATIONS 1. Advair 250/50 twice a day. 2. Ipratropium/albuterol inhaler by nebulizer four times daily. 3. Albuterol 2.5 mg inhalation q.2 hours p.r.n. 4. Aspirin 81 mg daily. ALLERGIES No known drug allergies. REVIEW OF SYSTEMS CONSTITUTIONAL: No appetite or weight change. No fever, chills, or sweating. No recent infection. HEENT: Ears: No tinnitus or hearing problem. Nose: No nasal discharge or epistaxis. Throat: No sore throat or mouth ulcers. Eyes: No diplopia or visual changes. RESPIRATORY: No shortness of breath. No cough, expectoration, or hemoptysis. CARDIOVASCULAR: No chest pain, orthopnea, or paroxysmal nocturnal dyspnea (PND). No edema. No palpitations. GASTROINTESTINAL: No nausea or vomiting. No diarrhea or constipation. No change in bowel movements. No heartburn or swallowing difficulties. No abdominal pain. No jaundice. No hematemesis, melena, or rectal bleeding. GENITOURINARY: No hematuria or dysuria. MUSCULOSKELETAL: He has cramps in the thighs. NEUROLOGICAL: No tingling or numbness in the hands or feet. No headaches or convulsions. HEMATOLOGIC/LYMPHATIC: No bleeding or easy bruising. No weakness or fatigue. No enlarged lymph nodes. SKIN: No skin rash or lumps. PSYCHIATRIC: No anxiety or depression. PHYSICAL EXAMINATION GENERAL: Looks stable. Well developed, well nourished, and in no acute distress. VITAL SIGNS: Blood pressure 138/80, pulse 62 per minute, respirations 18 per minute, temperature 97.1, pulse ox 92% on 3L oxygen. HEENT: Head: Atraumatic. No sinus tenderness to palpation. Eyes: No icterus or conjunctivitis. Mouth and throat: No oral thrush or mucositis. NECK: Supple. No cervical or supraclavicular lymphadenopathy. LUNGS: Clear to auscultation and percussion bilaterally. HEART: Regular rate and rhythm. No gallops, murmurs, clicks, or rubs. ABDOMEN: Soft and lax. No tenderness. No hepatosplenomegaly. No masses. EXTREMITIES: No cyanosis, clubbing, or edema. LYMPHATICS: No peripheral lymphadenopathy. NEUROLOGICAL: Conscious, alert, and oriented times three. No focal motor or sensory deficits. PSYCHIATRIC: Mood and affect appear normal. SKIN: No skin rash, bruise, or purpuric eruption. DIAGNOSTIC DATA CBC showed white count 9.9, hemoglobin 15.4, hematocrit 45.4, platelets 327,000. Erythropoietin level is normal at 4. ASSESSMENT 1. Reactive leukocytosis, most probably due to combined use of steroids, albuterol, and the previous infection. His current white count is 9.9, back to normal after he stopped his prednisone on the July. His LAP score is 184. Will continue to monitor his count every six months. 2. Erythrocytosis, most probably secondary in nature given the JAK2 mutation for V617F mutation and exon 12 mutation came back negative. His erythropoietin was 1, but currently it is 4. Patient has chronic obstructive pulmonary disease, on oxygen all the time. His current hematocrit is 45.4%. There is no indication for phlebotomy at the moment. I am planning to see him again in six months with CBC at that time. 3. Chronic obstructive pulmonary disease, on home oxygen. PLAN 1. Continue followup. 2. Patient to return in six months with CBC. 3. Patient to contact us for any new concern or complaint. SILVIA
[2017-11-27] MEDS ORDERED: FLUC100T39 PO (09:28)
== END 2017-12-04 09:06 | disposition home or self-care (01) ==
LOC: ONC 09:36
PROVIDERS: ATTEND Internal Medicine Hematology
DX: D72.828 Other elevated white blood cell count (principal); D75.1 Secondary polycythemia; J44.9 Chronic obstructive pulmonary disease, unspecified; Z99.81 Dependence on supplemental oxygen; Z87.891 Personal history of nicotine dependence
CPT/HCPCS: 36415; 82668; 85025; G0463; 99212

== ENCOUNTER → 2017-12-20 | Outpatient (CLI) | payer MEDICARE ==
[2016-12-23 12:47] VITALS: BMI 29.4
[~2017-12-20] MED LIST changes: +AMOX-559 PO; +FLUC100T39 PO
[2017-12-20 10:30] LABS: PLATELET COUNT, AUTOMATED 294 K/uL (150-450)
[2017-12-20 11:01] LABS: LDL CHOLESTEROL 52 mg/dl
== END ==
LOC: LAB 09:46
PROVIDERS: ATTEND Internal Medicine
DX: E78.5 Hyperlipidemia, unspecified (principal); G47.33 Obstructive sleep apnea (adult) (pediatric); J44.9 Chronic obstructive pulmonary disease, unspecified; E87.6 Hypokalemia; J03.80 Acute tonsillitis due to other specified organisms
CPT/HCPCS: 36415; 82040; 82247; 82310; 82374; 82435; 82465; 82565; 82947; 83718; 83735; 84075; 84132; 84155; 84295; 84443; 84450; 84460; 84478; 84520; 85025; 87070

== ENCOUNTER → 2018-01-21 | Outpatient (CLI) | payer MEDICARE ==
[2016-12-23 12:47] VITALS: BMI 29.4
[~2018-01-21] MED LIST changes: +AMOX875T60 PO
== END ==
LOC: LAB 15:07
PROVIDERS: ATTEND Internal Medicine
DX: J03.80 Acute tonsillitis due to other specified organisms (principal)
CPT/HCPCS: 87070

== ENCOUNTER → 2018-02-19 | Outpatient (CLI) | payer MEDICARE ==
[2016-12-23 12:47] VITALS: BMI 29.4
[~2018-02-19] MED LIST changes: +FLU60SYR36 IM; +FLUT16SP19 NS; +IBUP-56 PO; +OMEP-125 PO
[2018-02-19 10:33] LABS: PLATELET COUNT, AUTOMATED 297 K/uL (150-450)
== END ==
LOC: LAB 10:15
PROVIDERS: ATTEND Internal Medicine
DX: J44.9 Chronic obstructive pulmonary disease, unspecified (principal); G47.33 Obstructive sleep apnea (adult) (pediatric); E87.1 Hypo-osmolality and hyponatremia
CPT/HCPCS: 36415; 82040; 82247; 82310; 82374; 82435; 82565; 82947; 84075; 84132; 84155; 84295; 84450; 84460; 84520; 85025

== ENCOUNTER → 2018-05-20 | Outpatient (CLI) | payer MEDICARE ==
[2016-12-23 12:47] VITALS: BMI 29.4
[~2018-05-20] MED LIST changes: +NYST100016 PO
[2018-05-20 09:15] LABS: PLATELET COUNT, AUTOMATED 283 K/uL (150-450)
[2018-05-20 11:33] LABS: LDL CHOLESTEROL 63 mg/dl
== END ==
LOC: LAB 08:53
PROVIDERS: ATTEND Internal Medicine
DX: K04.7 Periapical abscess without sinus (principal); E78.5 Hyperlipidemia, unspecified; R79.89 Other specified abnormal findings of blood chemistry; G47.33 Obstructive sleep apnea (adult) (pediatric); J44.9 Chronic obstructive pulmonary disease, unspecified
CPT/HCPCS: 36415; 84443; 85025; G0103; 82040; 82247; 82310; 82374; 82435; 82465; 82565; 82947; 83718; 84075; 84132; 84153; 84155; 84295; 84450; 84460; 84478; 84520

== ENCOUNTER → 2018-06-18 | Outpatient (CLI) | payer MEDICARE ==
[2016-12-23 12:47] VITALS: BMI 29.4
[~2018-06-18] MED LIST changes: +LOSA25TA57 PO; +Work Note
--- NOTE | 2018-06-18 14:40 | RADIOLOGY IMAGING REPORT ---
FACILITY: [facility] PATIENT NAME: Azam Garcia : 1965 MR: [id number] V: [id number] EXAM DATE: ORDERING PHYSICIAN: GONZALEZ VIVEROS TECHNOLOGIST: Location: [facility] [place] Patient: Azam Garcia : 1965 Visit/Account:[id number] Date of Sevice: 06/18/2018 2 VIEWS CHEST INDICATION: Cough and chest tightness. History smoking. COMPARISON: 02/10/2017. FINDINGS: Cardiomediastinal silhouette and pulmonary vessels within normal limits. There is no focal infiltrate or lobar consolidation. There is no pneumothorax or pleural effusion. No nodule. Upper abdomen is unremarkable. No acute bony abnormality. IMPRESSION: 1. No acute cardiopulmonary process. Report Dictated By: Tavo Munguia at 06/18/2018 2:32 PM Report E-Signed By: Tavo Munguia at 06/18/2018 2:35 PM WSN:[id number]
== END ==
LOC: RAD 13:57
PROVIDERS: ATTEND Nurse Practitioner Primary Care
DX: R05 Cough (principal)
CPT/HCPCS: 71046

== ENCOUNTER → 2018-06-18 | Outpatient (CLI) | payer MEDICARE ==
[2016-12-23 12:47] VITALS: BMI 29.4
== END ==
LOC: LAB 14:20
DX: R97.20 Elevated prostate specific antigen [PSA] (principal)
CPT/HCPCS: 36415; 84153

== ENCOUNTER → 2018-06-18 | Outpatient (CLI) | payer MEDICARE ==
[2016-12-23 12:47] VITALS: BMI 29.4
== END ==
LOC: LAB 14:23
PROVIDERS: ATTEND Internal Medicine
DX: J41.1 Mucopurulent chronic bronchitis (principal)
CPT/HCPCS: 82310; 82374; 82435; 82565; 82947; 84132; 84295; 84520

== ENCOUNTER 2018-09-03 10:50 | Outpatient (RCR) | payer MEDICARE ==
[2016-12-23 12:47] VITALS: BMI 29.4
[~2018-09-03 10:50] MED LIST changes: -OMEP-125 PO; +OMEP-126 PO; +TRAM-420 PO
--- NOTE | 2018-09-03 12:56 | PT INITIAL EVALUATION ---
MEDICAL DIAGNOSIS: venous insufficiency ulcers TREATMENT DIAGNOSIS: same DATE OF ONSET: chronic SUBJECTIVE: Pt arrives with mediven dual layer compression stockings in place and notes that he wears them daily, but due to increased activity he now has holes in the toes and heals, which compromise their compressive ability. Pt continues to have weeping at B) medial ankles as well and changes dressings three times weekly. 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 OBJECTIVE: Current Wound Measurements: R) Medial ankle: 0.5cm L x 0.5cm W x 0.2cm D L) Medial ankle: 0.5cm L x 1cm W x 0.2cm D Circumferential: R) Mid calf- 43 cm Malleolus- 26 cm Length - 52 cm L) Mid calf- 43 cm Malleolus- 26 cm Length- 52.5 cm ASSESSMENT: For all wounds; non-selective debridement was used with sterile saline, and gauze. Areas of increased drainage were covered with bordered gauze dressing and surrounding skin treated with lotion followed by mediven dual layer compression stockings to address edema. Short Term Goals 1) Wounds to present 100% granulation bed 2) No signs or symptoms of infection to be noted. 3) Pt to receive updated compression stockings allowing for indep application and consistent use to effectively manage edema. Patient's Goals 1) Wounds to heal without further complications. PLAN: Patient to be seen for further re-eval with the use of advanced woundcare products to manage drainage and edema effectively. For 1x/Week for up to 3 months Pt to complete three times weekly dressing changes after showers and apply lotion for total skin care. Thank you for this referral. If you have any questions, comments, or concerns about this report or plan, please contact me at . H. Michelle Schumacher, PT, MPT, OMS MTDD
== END 2018-09-03 18:00 | disposition home or self-care (01) ==
LOC: PT 10:50
PROVIDERS: ATTEND Surgery
DX: I87.8 Other specified disorders of veins (principal); S91.002A Unspecified open wound, left ankle, initial encounter; J44.9 Chronic obstructive pulmonary disease, unspecified
CPT/HCPCS: 97161

== ENCOUNTER → 2018-09-23 | Outpatient (CLI) | payer MEDICARE ==
[2016-12-23 12:47] VITALS: BMI 29.4
[2018-09-23 10:21] LABS: LDL CHOLESTEROL 41 mg/dl
== END ==
LOC: LAB 09:43
PROVIDERS: ATTEND Internal Medicine
DX: J44.9 Chronic obstructive pulmonary disease, unspecified (principal); R79.89 Other specified abnormal findings of blood chemistry; E78.5 Hyperlipidemia, unspecified
CPT/HCPCS: 36415; 82040; 82247; 82310; 82374; 82435; 82465; 82565; 82947; 83718; 84075; 84132; 84155; 84295; 84450; 84460; 84478; 84520